=== PATIENT | male | born 1935 | race Caucasian/White ===

== ENCOUNTER 2024-07-17 18:55 | Inpatient (IN) | payer OTHER ==
[~2024-07-17] VITALS: Ht 177.8 cm; Wt 71.0 kg
[~2024-07-17 18:55] MED LIST: AMLO1TAB22 PO; ATOR40TA52 PO; FURO20TA4 PO; INSU1INJ3 SC; IPRAAER6 INH; LEVO175T4 PO; METO-289 PO; SENN8.6T83 PO; TORS20TA19 PO
--- NOTE | 2024-07-17 19:15 | ED.PDOC ---
History of Present Illness HPI Comments 88-year-old male brought in by EMS presents with a chief complaint of diarrhea x 2 months. Patient has been to multiple hospitals for this chronic issue and states that "no one can figure out what's going on". He states he has seen multiple doctors with no diagnosis. He denies associated abdominal pain. P vimal was hypoglycemic per EMS with a blood sugar reading of 72 and was given 24mg of Dextrose. Patient is on Torsemide for edema to his legs. No past medical history of congestive heart failure. Patient has chronic skin rash present for the past 15-20 years with no known diagnosis. Patient reports itching and watering of his eyes started today. Time Seen by MD: 18:58 Reviewed Notes: Medications, Allergies Allergies: Coded Allergies: NO KNOWN ALLERGIES (Unverified , 07/17/24) Information Source: Patient, Emergency Med Personnel Mode of Arrival: EMS Severity: Moderate Timing: Months Duration: Since onset Prehospital treatment: 12 Lead EKG, Concrete Gun Operator, Treatment (24mg Dextrose) Vital Signs Vital Signs Date Time Temp Pulse Resp B/P (MAP) Pulse Ox O2 Delivery O2 Flow Rate FiO2 07/17/24 19:05 98.6 76 16 105/57 (73) 95 98.6 Physical Exam General: Awake, alert and oriented. No acute distress. Skin: Skin in warm, dry, generalized flaking skin rash over head, chest, upper extremities HEENT: The head is normocephalic and atraumatic. Bilateral conjunctival erythema and edema with rounding eyelid edema. Clear watery discharge from bilateral eyes. Neck: The neck is supple with normal range of motion. No JVD. Cardiac: Heart rate and rhythm are normal. No murmurs, gallops, or rubs are auscultated. Respiratory: No signs of respiratory distress. Lung sounds are clear in all lobes bilaterally without rales, rhonchi, or wheezes. Abdominal: Abdomen is soft, non-tender without distention. Bowel sounds are present and normoactive in all four quadrants. Extremities: Upper and lower extremities are atraumatic in appearance without deformity or edema. Neurological: The patient is awake, alert and oriented to person, place, and t des with normal speech. Speech is clear. There is no facial asymmetry. Psychiatric: Appropriate mood and affect. Good judgement and insight. Review of Systems: REVIEW OF SYSTEMS: No fever, no chills, or fatigue HEENT: No sore throat, no earache, no congestion, no neck pain. Cardiac: No chest pain. No palpitations. Lungs: No shortness of breath, no cough. GI: No nausea, no vomiting, positive diarrhea, no constipation, no abdominal pain : No dysuria, frequency, or urgency. No hematuria. Musculoskeletal: No joint pain , no joint swelling, no extremity edema. Skin: Positive rash, no itching. Neuro: No headache, no dizziness, no weakness Past Medical History PAST MEDICAL HISTORY: CKF, DM, Thyroid Surgical History: Pt Confused Family History Family History: Pt Confused Social History Smoker: Non-Smoker Alcohol: Denies ETOH Use Drugs: Denies Drug Use Lives In: Home Was a procedure done? Was a procedure done?: No Differential Dx Considerations may include: Bacterial, C diff, electrolyte imbalance, vitamin deficiency, IBS, IBD, colitis, other X-Ray, Labs, Meds, VS Vital Signs Date Time Temp Pulse Resp B/P (MAP) Pulse Ox O2 Delivery O2 Flow Rate FiO2 07/17/24 19:05 98.6 76 16 105/57 (73) 95 98.6 Lab Test 07/17/24 21:32 07/17/24 21:05 07/17/24 21:00 07/17/24 19:33 Range/Units Lactic Acid Level 3.4 *H 4.5 *H 0.4-2.0 mmol/L Blood Gas Specimen Type Arterial Blood Gas Sample Site Right radial Blood Gas Patient Temperature 37.0 Arterial Blood Date Drawn [id number] Arterial Blood pH 7.420 7.350-7.450 Arterial Blood Partial Pressure CO2 49.7 H 35.0-48.0 mmHg Arterial Blood Partial Pressure O2 57.9 L 83.0-108.0 mmHg Arterial Blood HCO3 31.5 H 21.0-28.0 mmol/L Arterial Blood Oxygen Saturation 86.5 L 94.0-98.0 % Arterial Blood Base Excess 6.1 H -2.0-3.0 mmol/L Arterial Blood Oxyhemoglobin 85.8 L 94.0-98.0 % Arterial Blood Carboxyhemoglobin 0.6 0.5-1.5 % Arterial Blood Methemoglobin 0.2 0.0-1.5 % Cesario Test Modified Blood Gas Total Hemoglobin 10.90 L 13.5-17.5 g/dL Blood Gas Liter Flow 0.00 Blood Gas Modality Room air FiO2 % 21.0 Blood Gas Critical Value Read Back Yes Blood Gas Notified Whom Md julia rashid Blood Gas Notified By Rt jakob raymond Troponin I High Sensitivity 28 29 </=54 ng/L White Blood Count 6.7 4.4-10.8 10^3/uL Red Blood Count 4.44 L 4.5-5.90 10^6/uL Hemoglobin 12.1 L 13.5-17.5 g/dL Hematocrit 38.1 L 41.0-53.0 % Mean Corpuscular Volume 85.8 80.0-100.0 fL Mean Corpuscular Hemoglobin 27.3 L 28.0-32.0 pg Mean Corpuscular Hemoglobin Concent 31.8 L 32.0-36.0 g/dL Red Cell Distribution Width 17.4 H 11.8-14.3 % Platelet Count 181 140-450 10^3/uL Mean Platelet Volume 9.2 6.9-10.8 fL Neutrophils (%) (Auto) 92.9 H 37.0-80.0 % Lymphocytes (%) (Auto) 4.5 L 10.0-50.0 % Monocytes (%) (Auto) 2.2 0.0-12.0 % Eosinophils (%) (Auto) 0.2 0.0-7.0 % Basophils (%) (Auto) 0.2 0.0-2.0 % Neutrophils # (Auto) 6.2 1.6-8.6 10 ^3/uL Lymphocytes # (Auto) 0.3 L 0.4-5.4 10 ^3/uL Monocytes # (Auto) 0.1 0-1.3 10 ^3/uL Eosinophils # (Auto) 0 0-0.8 10 ^3/uL Basophils # (Auto) 0 0-0.2 10 ^3/uL Nucleated Red Blood Cells 0.2 % Sodium Level 146 H 136-145 mmol/L Potassium Level 2.0 *L 3.5-5.1 mmol/L Chloride Level 102 98-107 mmol/L Carbon Dioxide Level 32 H 20-31 mmol/L Anion Gap 12 5-15 Blood Urea Nitrogen 51 H 9-23 mg/dL Creatinine 3.24 H 0.700-1.30 mg/dL Glomerular Filtration Rate Calc 18 >90 mL/min BUN/Creatinine Ratio 15.7 10.0-20.0 Serum Glucose 63 L 74-106 mg/dL Calcium Level 7.0 L 8.7-10.4 mg/dL Magnesium Level 1.5 L 1.6-2.6 mg/dL Total Bilirubin 0.3 0.2-1.0 mg/dL Aspartate Amino Transferase (AST) 23 13-40 U/L Alanine Aminotransferase (ALT) 30 7-40 U/L Alkaline Phosphatase 111 46-116 U/L B-Type Natriuretic Peptide 449.41 0-100 pg/mL Total Protein 5.6 L 5.7-8.2 g/dL Albumin 2.9 L 3.2-4.8 g/dL PATIENT: Jill PandeyT: [id number]: [id number] : 1935 LOC: ER ROOM / BED: / AGE / SEX: 88 / M ADM STATUS: REG ER SERVICE 23 ORDERING PHYSICIAN: DELMER RASHID MD PROCEDURE(s): CXR1 - CHEST XRAY 1 VIEW REASON: Lower extremity edema, rule out pulmonary edema ORDER NUMBER(s): [id number], ACCESSION NUMBER(s): [id number] CHEST RADIOGRAPH Indication: Lower extremity edema, rule out pulmonary edema Technique: Single frontal view of the chest was obtained COMPARISON: None FINDINGS: Lines and Tubes: None Lungs: Multifocal airspace disease Pleura: No effusion. No pneumothorax. Cardiomediastinal contours: Cardiomegaly Bones: Unremarkable IMPRESSION: Pulmonary edema ATED BY: JOSUE COSTA MD DICTATED DATE/TIME: 07/17/241956 SIGNED BY: JOSUE COSTA MD SIGNED DATE/TIME: 07/17/241956 Time of 1ST Reevaluation: 19:28 Reevaluation 1ST: Unchanged Patient Education/Counseling: Need For Follow Up Family Education/Counseling: No Family Present Departure 1 Departure Time of Disposition: 20:31 Impression: Primary Impression: Chronic diarrhea Additional Impressions: Hypokalemia Hypomagnesemia Lactic acidemia Rash Conjunctivitis Acute renal failure Disposition: ADMITTED INPATIENT Condition: Stable Comments 88-year-old male with chronic diarrhea. Workup reveals likely hypovolemia as cause of elevated lactic acid. No leukocytosis or fever. Potassium and magn esium replacement initiated in the emergency department. Patient admitted to hospitalist service for further treatment, evaluation and monitoring. Extensive evaluation was performed in attempt to identify or rule out: (See differential diagnosis section) The following tests were ordered, and results were reviewed by me and discussed with patient: (See diagnostic results section) The following test were independently interpreted by me: N/A I reviewed and agreed with the following test results read by other providers: N/A I reviewed the following notes from the pt's past medical encounters: N/A Additional information was gathered from interviewing the following independent historians: EMS personnel Discussion of management or test interpretation with external physician/other qualified health health care technician: N/A Addressed an acute or chronic illness that poses a threat to life or bodily function: Hypokalemia, hypomagnesemia Decision regarding hospitalization or escalation of hospital level of care: Risk and benefits of admission for further treatment of patient's condition was considered. Due to patient's current clinical condition, high risk of decline and poor outcome if discharged and need for further inpatient management and monitoring, patient will be admitted to the hospital. Drug therapy requiring intensive monitoring for toxicity: N/A Parenteral controlled substances: N/A Decision regarding elective major surgery with identified patient or procedure risk factors: N/A Decision regarding emergency major surgery: N/A Decision not to resuscitate or to de-escalate care because of poor prognosis: N/A Diagnosis or treatment significantly limited by social determinants of health: N/A Critical Care Note Critical Care Time?: No Stability Stability form required: No Heart Score Heart Score: Heart Score Response (Comments) Value History N/A 0 EKG N/A 0 Age N/A 0 Risk Factors N/A 0 Troponin N/A 0 Total 0 I personally scribed for DELMER RASHID MD ([email or web address]) on 07/17/24 at 19:15. Electronically submitted by Jareth Mariee ([email or web address]). I personally scribed for DELMER RASHID MD ([email or web address]) on 07/17/24 at 20:04. Electronically submitted by Jareth Mariee ([email or web address]). DELMER RASHID MD Jul 17, 2024 19:15
[2024-07-17 19:55] LABS: Basophils # (auto) 0 10 ^3/uL (0-0.2); Basophils % (auto) 0.2 % (0.0-2.0); Eosinophils # (auto) 0 10 ^3/uL (0-0.8); Eosinophils % (auto) 0.2 % (0.0-7.0); Hematocrit 38.1 % (41.0-53.0); Hemoglobin 12.1 g/dL (13.5-17.5); Lymphocytes # (auto) 0.3 10 ^3/uL (0.4-5.4); Lymphocytes % (auto) 4.5 % (10.0-50.0); Mean Corpuscular Hemoglobin 27.3 pg (28.0-32.0); Mean Corpuscular Hgb Conc. 31.8 g/dL (32.0-36.0); Mean Corpuscular Volume 85.8 fL (80.0-100.0); Monocytes # (auto) 0.1 10 ^3/uL (0-1.3); Monocytes % (auto) 2.2 % (0.0-12.0); Neutrophils # (auto) 6.2 10 ^3/uL (1.6-8.6); Neutrophils % (auto) 92.9 % (37.0-80.0); Nucleated Red Blood Cells % 0.2 %; Platelet Count (auto) 181 10^3/uL (140-450); Red Blood Cells 4.44 10^6/uL (4.5-5.90); Red Cell Distribution Width 17.4 % (11.8-14.3); White Blood Cell 6.7 10^3/uL (4.4-10.8)
--- NOTE | 2024-07-17 19:59 | DVH ---
CHEST RADIOGRAPH Indication: Lower extremity edema, rule out pulmonary edema Technique: Single frontal view of the chest was obtained COMPARISON: None FINDINGS: Lines and Tubes: None Lungs: Multifocal airspace disease Pleura: No effusion. No pneumothorax. Cardiomediastinal contours: Cardiomegaly Bones: Unremarkable IMPRESSION: Pulmonary edema
[2024-07-17 20:04] LABS: Alanine Aminotransferase 30 U/L (7-40); Alkaline Phosphatase 111 U/L (46-116); Anion Gap 12 (5-15); Aspartate Aminotransferase 23 U/L (13-40); BUN/Creatinine Ratio 15.7 (10.0-20.0); Chloride 102 mmol/L (98-107)
[2024-07-17 20:08] LABS: Albumin 2.9 g/dL (3.2-4.8); Bilirubin, Total 0.3 mg/dL (0.2-1.0); Blood Urea Nitrogen 51 mg/dL (9-23); Carbon Dioxide 32 mmol/L (20-31); Glucose 63 mg/dL (74-106); Magnesium 1.5 mg/dL (1.6-2.6); Sodium 146 mmol/L (136-145); Total Protein 5.6 g/dL (5.7-8.2)
[2024-07-17 20:13] LABS: Lactic Acid w/Reflex 4.5 mmol/L (0.4-2.0)
[2024-07-17] MEDS ORDERED: SODIUM CHLORIDE 0.9% 1,000 ML IV ONE (20:30)
[2024-07-17 21:00] VITALS: PULSE 63; RESP 18; O2SAT 97
[2024-07-17] MEDS: SODIUM CHLORIDE 0.9% 1,000 ML IV ONE (21:00)
[2024-07-17 21:15] LABS: Base Excess 6.1 mmol/L (-2.0-3.0)
[2024-07-17] MEDS: POTASSIUM CHL 20 Meq TABLET PO ONE (23:08)
[2024-07-17] MEDS: BACITRACIN-POLYMYXIN B OPTH(EYE) OINT 3.5GM OP ONE (23:08)
[2024-07-17] MEDS: MAGNESIUM SULFATE 1GM/100ML 100 ML IV SCH (23:09)
[2024-07-17] MEDS: POTASSIUM CHL 20MEQ/50ML 50 ML IV ONE (23:09)
[2024-07-17] MEDS ORDERED: DEXTROSE (50%) 50ML SYRG IV PRN (23:45)
[2024-07-17] MEDS ORDERED: ONDANSETRON HCL 4 MG/2 ML VIAL IV PRN (23:45)
[2024-07-17] MEDS ORDERED: ACETAMINOPHEN 325 MG TAB PO PRN (23:45)
--- NOTE | 2024-07-18 00:02 | DVH ---
CLINICAL HISTORY: Diarrhea chronic, elevated lactic acid TECHNIQUE: CT of the abdomen and pelvis was performed without intravenous contrast. This exam was per formed according to our departmental dose optimization program. Up-to-date CT equipment and radiation dose reduction techniques are utilized as appropriate. CTDI: 7.23 DLP: 410.38 WID: COMPARISON: None FINDINGS: Lower Thorax: Moderate-sized left lower and right middle lobe consolidations. Interlobular septal thi ckening in the lung bases. Ground-glass opacification in the lung bases. There is mild cardiomegaly. Small right and trace left pleural effusions. Partially imaged moderate 3-vessel coronary artery calc ifications and mild aortic valve calcifications. Trace pericardial fluid. Hypodensity of the blood po ol relative to the myocardium indicative of anemia. Liver and Biliary system: Grossly Unremarkable apart from cholelithiasis. No biliary ductal dilatatio n. Spleen: Unremarkable. Adrenal Glands and Kidneys: Unremarkable. Pancreas and Retroperitoneum: Atrophic pancreas. A peripherally calcified structure is seen within or adjacent to the pancreas distally measuring 2.5 cm on series 2, image 30. No pathologically enlarged retroperitoneal lymph nodes. Aorta and Major Vessels: Aortoiliac vessels are normal in caliber with moderate calcified atheroscler otic plaque. Bowel, Mesentery and Peritoneal space: Normal caliber small and large bowel. Mild colonic diverticulo sis. No free air or fluid collection to suggest abscess. Mild mesenteric venous congestion. Pelvis: Unremarkable. Abdominal wall and Osseous Structures: Mild body wall edema. Bony demineralization. Multilevel lower thoracic and lumbar spondylosis. IMPRESSION: 1. Airspace consolidations which are moderate-sized in the left lower and right middle lobes likely m ultifocal pneumonia. 2. Mild cardiomegaly, interstitial and alveolar pulmonary edema, small right and trace left pleural e ffusions, mild mesenteric venous congestion and body wall edema likely related to mild CHF/ volume ov erload. 3. Anemia suggested. Correlate with CBC 4. Mild colonic diverticulosis. 5. Cholelithiasis.
--- NOTE | 2024-07-18 00:39 | DVHHP2 ---
History of Present Illness Reason for Visit: Shortness for breath History of Present Illness 88-year-old male presents for evaluation of shortness for breath. Patient's daughters at the bedside reports a one day history of her father complaining of worsening shortness for breath. They also report a two month history of watery diarrhea. They have noticed increased swelling to bilateral lower extremities. Denies chest pain or tightness. No cough or fever. Patient also has a chronic skin condition for the past 12 years. Past Medical History Hypothyroid, diabetes mellitus, chronic kidney disease, skin condition Past Surgical History None Family History Noncontributory Smoke: No ALCOHOL: none Drugs: None Lives: with Family Review of Systems Review of Systems Review of systems are currently negative otherwise addressed in HPI. Allergies: Coded Allergies: NO KNOWN ALLERGIES (Unverified , 07/17/24) Medications Current Medications Medications Dose Ordered Sig/Cassidy Route Start Time Stop Time Status Last Admin Dose Admin Ceftriaxone Sodium 50 ml @ 100 mls/hr DAILY@09 IV 07/19/24 09:00 Metronidazole 100 ml @ 100 mls/hr Q8HR IV 07/18/24 06:00 Magnesium Sulfate/ Dextrose 100 ml @ 100 mls/hr Q1H IV 07/17/24 23:45 07/18/24 01:44 Furosemide 20 mg DAILY IV 07/18/24 10:00 Diagnostic Test (Pha) 1 strip Q6HR 07/18/24 00:00 Insulin Human Regular Q6HR SC 07/18/24 00:00 Dextrose 50 ml UD PRN IV 07/17/24 23:45 Acetaminophen/ Hydrocodone Bitart 1 tab Q4HP PRN PO 07/17/24 23:45 Ondansetron HCl 4 mg Q4HP PRN IV 07/17/24 23:45 Acetaminophen 650 mg Q6HP PRN PO 07/17/24 23:45 Exam Vital Signs Vital Signs Date Time Temp Pulse Resp B/P (MAP) Pulse Ox O2 Delivery O2 Flow Rate FiO2 07/18/24 00:00 76 07/17/24 23:00 18 109/51 (70) 97 07/17/24 21:00 Room Air* 0 21 07/17/24 21:00 98.1 98.1 Exam Gen: 88-year-old male in mild distress Skin: Warm, dry, normal color and texture, scaly rash HEENT: Normocephalic atraumatic, mucous membranes moist and pink. Neck: Cervical and supraclavicular nodes normal without enlargement, trachea is midline, thyroid gland is normal without masses. Pulmonary: Clear to auscultation and percussion bilaterally. Cardiac: Regular rate and rhythm. No murmur Abdomen: Soft, nontender, nondistended, bowel sounds present all 4 quadrants, no guarding, no rigidity, no organomegaly. Extremities: No cyanosis, clubbing, bilateral lower extremity plus one edema Neuro: Cranial nerves II through XII grossly intact, normal affect and speech, no focal motor deficits. Labs/Xrays ORDERING PHYSICIAN: DELMER RASHID MD PROCEDURE(s): CXR1 - CHEST XRAY 1 VIEW REASON: Lower extremity edema, rule out pulmonary edema ORDER NUMBER(s): [id number], ACCESSION NUMBER(s): [id number] CHEST RADIOGRAPH Indication: Lower extremity edema, rule out pulmonary edema Technique: Single frontal view of the chest was obtained COMPARISON: None FINDINGS: Lines and Tubes: None Lungs: Multifocal airspace disease Pleura: No effusion. No pneumothorax. Cardiomediastinal contours: Cardiomegaly Bones: Unremarkable IMPRESSION: Pulmonary edema RING PHYSICIAN: DELMER RASHID MD PROCEDURE(s): ABPL - CT AB PEL WO CON-NO ORAL OR IV REASON: Diarrhea chronic, elevated lactic acid ORDER NUMBER(s): [id number], ACCESSION NUMBER(s): [id number] CLINICAL HISTORY: Diarrhea chronic, elevated lactic acid TECHNIQUE: CT of the abdomen and pelvis was performed without intravenous contrast. This exam was performed according to our departmental dose optimization program. Up-to-date CT equipment and radiation dose reduction techniques are utilized as appropriate. CTDI: 7.23 DLP: 410.38 WID: COMPARISON: None FINDINGS: Lower Thorax: Moderate-sized left lower and right middle lobe consolidations. Interlobular septal thickening in the lung bases. Ground-glass opacification in the lung bases. There is mild cardiomegaly. Small right and trace left pleural effusions. Partially imaged moderate 3-vessel coronary artery calcifications and mild aortic valve calcifications. Trace pericardial fluid. Hypodensity of the blood pool relative to the myocardium indicative of anemia. Liver and Biliary system: Grossly Unremarkable apart from cholelithiasis. No biliary ductal dilatation. Spleen: Unremarkable. Adrenal Glands and Kidneys: Unremarkable. Pancreas and Retroperitoneum: Atrophic pancreas. A peripherally calcified structure is seen within or adjacent to the pancreas distally measuring 2.5 cm on series 2, image 30. No pathologically enlarged retroperitoneal lymph nodes. Aorta and Major Vessels: Aortoiliac vessels are normal in caliber with moderate calcified atherosclerotic plaque. Bowel, Mesentery and Peritoneal space: Normal caliber small and large bowel. Mild colonic diverticulosis. No free air or fluid collection to suggest abscess. Mild mesenteric venous congestion. Pelvis: Unremarkable. Abdominal wall and Osseous Structures: Mild body wall edema. Bony demineralization. Multilevel lower thoracic and lumbar spondylosis. IMPRESSION: 1. Airspace consolidations which are moderate-sized in the left lower and right middle lobes likely multifocal pneumonia. 2. Mild cardiomegaly, interstitial and alveolar pulmonary edema, small right and trace left pleural effusions, mild mesenteric venous congestion and body wall edema likely related to mild CHF/ volume overload. 3. Anemia suggested. Correlate with CBC 4. Mild colonic diverticulosis. 5. Cholelithiasis. ATED BY: JOSE R MITCHELL MD Labs Test 07/17/24 21:32 07/17/24 21:05 07/17/24 21:00 07/17/24 19:33 Range/Units Lactic Acid Level 3.4 *H 0.4-2.0 mmol/L Blood Gas Specimen Type Arterial Blood Gas Sample Site Right radial Blood Gas Patient Temperature 37.0 Arterial Blood Date Drawn [id number] Arterial Blood pH 7.420 7.350-7.450 Arterial Blood Partial Pressure CO2 49.7 H 35.0-48.0 mmHg Arterial Blood Partial Pressure O2 57.9 L 83.0-108.0 mmHg Arterial Blood HCO3 31.5 H 21.0-28.0 mmol/L Arterial Blood Oxygen Saturation 86.5 L 94.0-98.0 % Arterial Blood Base Excess 6.1 H -2.0-3.0 mmol/L Arterial Blood Oxyhemoglobin 85.8 L 94.0-98.0 % Arterial Blood Carboxyhemoglobin 0.6 0.5-1.5 % Arterial Blood Methemoglobin 0.2 0.0-1.5 % Cesario Test Modified Blood Gas Total Hemoglobin 10.90 L 13.5-17.5 g/dL Blood Gas Liter Flow 0.00 Blood Gas Modality Room air FiO2 % 21.0 Blood Gas Critical Value Read Back Yes Blood Gas Notified Whom Md julia rashid Blood Gas Notified By Rt jakob raymond Troponin I High Sensitivity 28 </=54 ng/L White Blood Count 6.7 4.4-10.8 10^3/uL Red Blood Count 4.44 L 4.5-5.90 10^6/uL Hemoglobin 12.1 L 13.5-17.5 g/dL Hematocrit 38.1 L 41.0-53.0 % Mean Corpuscular Volume 85.8 80.0-100.0 fL Mean Corpuscular Hemoglobin 27.3 L 28.0-32.0 pg Mean Corpuscular Hemoglobin Concent 31.8 L 32.0-36.0 g/dL Red Cell Distribution Width 17.4 H 11.8-14.3 % Platelet Count 181 140-450 10^3/uL Mean Platelet Volume 9.2 6.9-10.8 fL Neutrophils (%) (Auto) 92.9 H 37.0-80.0 % Lymphocytes (%) (Auto) 4.5 L 10.0-50.0 % Monocytes (%) (Auto) 2.2 0.0-12.0 % Eosinophils (%) (Auto) 0.2 0.0-7.0 % Basophils (%) (Auto) 0.2 0.0-2.0 % Neutrophils # (Auto) 6.2 1.6-8.6 10 ^3/uL Lymphocytes # (Auto) 0.3 L 0.4-5.4 10 ^3/uL Monocytes # (Auto) 0.1 0-1.3 10 ^3/uL Eosinophils # (Auto) 0 0-0.8 10 ^3/uL Basophils # (Auto) 0 0-0.2 10 ^3/uL Nucleated Red Blood Cells 0.2 % Sodium Level 146 H 136-145 mmol/L Potassium Level 2.0 *L 3.5-5.1 mmol/L Chloride Level 102 98-107 mmol/L Carbon Dioxide Level 32 H 20-31 mmol/L Anion Gap 12 5-15 Blood Urea Nitrogen 51 H 9-23 mg/dL Creatinine 3.24 H 0.700-1.30 mg/dL Glomerular Filtration Rate Calc 18 >90 mL/min BUN/Creatinine Ratio 15.7 10.0-20.0 Serum Glucose 63 L 74-106 mg/dL Calcium Level 7.0 L 8.7-10.4 mg/dL Magnesium Level 1.5 L 1.6-2.6 mg/dL Total Bilirubin 0.3 0.2-1.0 mg/dL Aspartate Amino Transferase (AST) 23 13-40 U/L Alanine Aminotransferase (ALT) 30 7-40 U/L Alkaline Phosphatase 111 46-116 U/L B-Type Natriuretic Peptide 449.41 0-100 pg/mL Total Protein 5.6 L 5.7-8.2 g/dL Albumin 2.9 L 3.2-4.8 g/dL Assessment/Plan Assessment/Plan Assessment Multifocal pneumonia Acute on chronic CHF Colitis Acute renal failure Electrolyte imbalance Diabetes mellitus Plan Admit the [place] [facility] [place] Nephrology consult Dermatology consultation Echocardiogram pending Replete electrolytes Levaquin/Flagyl GI consultation Continue treatment per orders. Plan discussed with: Patient My Orders Orders - LEONIDES PUENTE Procedure Category Date Status Time Metronidazole PHA 07/18/24 In Process 500mg/100ml (Flagyl 06:00 Metronidazole PHA 07/17/24 In Process 500mg/100ml (Flagyl 23:45 Dermatology REFER 07/17/24 Transmitted 23:37 * [facility] [employer] CONS 07/17/24 Transmitted 23:37 *[facility]. [facility] CONS 07/17/24 Transmitted -[place] 23:37 Thyroid Stimulating LAB 07/17/24 In Process Hormone 23:37 Kidney US 07/17/24 Taken 23:37 Magnesium Sulfate PHA 07/17/24 In Process 1gm/100ml 23:45 Furosemide Injection PHA 07/18/24 In Process (Lasix Injection) 10:00 Basic Metabolic Panel LAB 07/18/24 Logged 04:00 Glucose Blood PHA 07/18/24 In Process (Accu-Chek Comfort 00:00 Insulin R (Human) PHA 07/18/24 In Process (Insulin R) 00:00 Dextrose 50% Syringe PHA 07/17/24 In Process 23:45 Admit ADMIT 07/17/24 Transmitted 23:37 Renal DIET 07/18/24 Transmitted Standard(2gna,3gk,Lopho) Breakfast Hydrocodone-Acet PHA 07/17/24 In Process 5/325mg Tab ([place] 23:45 Ondansetron Hcl PHA 07/17/24 In Process (Zofran) 23:45 Complete Blood Count LAB 07/18/24 Logged 04:00 Echo 2d Mode Cardiac US 07/17/24 Logged DOP 23:37 Condition: Stable CIRILO 07/17/24 In Process 23:37 Acetaminophen Tablet PHA 07/17/24 In Process (Tylenol Tablet) 23:45 Bedrest With Bathroom CIRILO 07/17/24 In Process Privileg 23:37 C-Reactive Protein LAB 07/17/24 In Process 23:52 Erythrocyte LAB 07/17/24 In Process Sedimentation Rate 23:52 Ceftriaxone 1gm/50ml PHA 07/19/24 In Process D5w (Rocephin) 09:00 Levofloxacin Levaquin PHA 07/18/24 Transmitted 00:45 Albuterol Medneb PHA 07/18/24 Verified (Ventolin Medneb) 00:45 Date of Service: Jul 17, 2024 Billing Provider: LEONIDES PUENTE Common Visit Codes: [id number] INP/OBS CARE (HIGH) LEONIDES PUENTE Jul 18, 2024 00:39
[2024-07-18 00:40] VITALS: BP 109/61; PULSE 76; RESP 18; TEMP 98.1; O2SAT 95
[2024-07-18] MEDS ORDERED: ALBUTEROL SULF 2.5 MG/0.5ML(0.5%) NEB SOLN NEB PRN (00:45)
[2024-07-18] MEDS: cefTRIAXone 1GM/50ML D5W 50 ML IV ONE ×2 (00:52→11:26)
[2024-07-18] MEDS: MAGNESIUM SULFATE 1GM/100ML 100 ML IV SCH ×2 (01:08→12:23)
[2024-07-18] MEDS: metroNIDAZOLE 500MG/100ML 100 ML IV ONE (01:08)
[2024-07-18] MEDS: InsuLIN REG 1unit/0.01ml Soln (100units/ml) SC SCH (01:16)
[2024-07-18] MEDS: ACCU-CHEK COMFORT CURVE STRIP VI SCH (01:16)
[2024-07-18 01:29] LABS: Erythrocyte Sedimentation Rate 50 mm/hr (0-20)
[2024-07-18] MEDS: FUROSEMIDE 20 MG/2 ML VIAL IV ONE (01:43)
[2024-07-18] MEDS: levoFLOXacin 750MG 150 ML IV ONE (01:44)
--- NOTE | 2024-07-18 02:04 | DVH ---
RENAL ULTRASOUND CLINICAL HISTORY: renal failure TECHNIQUE: Multiple grayscale ultrasound images were obtained through the kidneys and urinary bladder . COMPARISON: None FINDINGS: Right kidney: Measures 11 cm. No hydronephrosis. Left kidney: Measures 10.4 cm. No hydronephrosis. Urinary bladder: Distended urinary bladder without wall thickening. Prevoid volume is 615 mL. IMPRESSION: Normal size kidneys without evidence of hydronephrosis.
[2024-07-18 05:36] LABS: Basophils # (auto) 0 10 ^3/uL (0-0.2); Basophils % (auto) 0.1 % (0.0-2.0); Eosinophils # (auto) 0 10 ^3/uL (0-0.8); Eosinophils % (auto) 0.3 % (0.0-7.0); Hemoglobin 11.5 g/dL (13.5-17.5); Lymphocytes # (auto) 0.3 10 ^3/uL (0.4-5.4); Lymphocytes % (auto) 4.5 % (10.0-50.0); Mean Corpuscular Hemoglobin 26.6 pg (28.0-32.0); Mean Corpuscular Hgb Conc. 31.1 g/dL (32.0-36.0); Mean Corpuscular Volume 85.6 fL (80.0-100.0); Monocytes # (auto) 0.1 10 ^3/uL (0-1.3); Monocytes % (auto) 1.7 % (0.0-12.0); Neutrophils % (auto) 93.4 % (37.0-80.0); Nucleated Red Blood Cells % 2.6 %; Platelet Count (auto) 141 10^3/uL (140-450); Red Blood Cells 4.32 10^6/uL (4.5-5.90); Red Cell Distribution Width 17.1 % (11.8-14.3); White Blood Cell 6.4 10^3/uL (4.4-10.8)
[2024-07-18 05:59] LABS: Anion Gap 6 (5-15); Chloride 103 mmol/L (98-107); Sodium 141 mmol/L (136-145)
[2024-07-18 06:06] LABS: Carbon Dioxide 32 mmol/L (20-31); Glucose 146 mg/dL (74-106)
[2024-07-18 06:07] LABS: Potassium 2.2 mmol/L (3.5-5.1)
[2024-07-18 06:09] LABS: BUN/Creatinine Ratio 13.9 (10.0-20.0); Blood Urea Nitrogen 40 mg/dL (9-23)
[2024-07-18] MEDS: metroNIDAZOLE 500MG/100ML 100 ML IV SCH (06:31)
[2024-07-18 06:43] VITALS: O2SAT 93
[2024-07-18 08:00] VITALS: PULSE 76; RESP 12; O2SAT 94
[2024-07-18] MEDS: POTASSIUM CHL 20MEQ/50ML 50 ML IV SCH ×2 (08:08→20:45)
[2024-07-18] MEDS: SODIUM CHL 0.9% 100 ML IV SCH ×2 (08:09→20:45)
[2024-07-18] MEDS: FUROSEMIDE 20 MG/2 ML VIAL IV SCH (10:26)
--- NOTE | 2024-07-18 11:09 | DVHPN2 ---
Subjective 88-year-old male with a history of type 2 diabetes, chronic kidney disease, hypothyroidism came to the hospital with a chief complaint of shortness of breaths and diarrhea. He says he had the diarrhea for 2 month several bowel movements every day 2 or 3 or 4 He is also complaining of retaining fluid in his legs He denies abdominal pain, no vomiting Workup here showed a creatinine of 3.2 and a potassium of 2.0 and sodium of 146 and magnesium 1.5 Chest x-ray showed infiltrates in the lower [place] and a CT scan of the abdomen and pelvis confirmed bilateral pneumonia He is on 5 L nasal cannula He says he uses oxygen at home TSH was 20 Changes from previous H/P or p: Changes Objective Vitals Vital Signs Date Time Temp Pulse Resp B/P (MAP) Pulse Ox O2 Delivery O2 Flow Rate FiO2 07/18/24 10:26 106/64 07/18/24 08:00 97.7 76 12 94 97.7 07/18/24 08:00 Nasal Cannula* 4 36 Intake/Output Intake and Output 07/18/24 07:00 Intake Total 1020 ml Balance 1020 ml Intake IV Total 1020 ml General Appearance: Alert, Oriented X3, mild distress Lungs: Other (Bilateral rhonchi at the bases) Cardiovascular: Other (Irregularly irregular) Abdomen: Normal bowel sounds, Soft, No tenderness Extremities: Other (2+ edema bilaterally in the lower extremities) Medications Current Medications Medications Dose Ordered Sig/Cassidy Route Start Time Stop Time Status Last Admin Dose Admin Metronidazole 100 ml @ 100 mls/hr Q8HR IV 07/18/24 06:00 07/18/24 06:31 100 MLS/HR Furosemide 20 mg DAILY IV 07/18/24 10:00 07/18/24 10:26 20 MG Diagnostic Test (Pha) 1 strip Q6HR 07/18/24 00:00 07/18/24 06:31 1 STRIP Insulin Human Regular Q6HR SC 07/18/24 00:00 Dextrose 50 ml UD PRN IV 07/17/24 23:45 Acetaminophen/ Hydrocodone Bitart 1 tab Q4HP PRN PO 07/17/24 23:45 Ondansetron HCl 4 mg Q4HP PRN IV 07/17/24 23:45 Acetaminophen 650 mg Q6HP PRN PO 07/17/24 23:45 Levofloxacin/ Dextrose 100 ml @ 100 mls/hr Q48H IV 07/19/24 01:00 Albuterol 2.5 mg Q6HPRN PRN NEB 07/18/24 00:45 Laboratory Results Laboratory Tests 07/18/24 05:23 Chemistry Test 07/17/24 19:33 07/18/24 05:23 Albumin 2.9 g/dL (3.2-4.8) L Calcium Level 7.0 mg/dL (8.7-10.4) L 7.0 mg/dL (8.7-10.4) L Magnesium Level 1.5 mg/dL (1.6-2.6) L 1.8 mg/dL (1.6-2.6) Total Protein 5.6 g/dL (5.7-8.2) L Cardiac Markers Test 07/17/24 19:33 B-Type Natriuretic Peptide 449.41 pg/mL (0-100) LFT Test 07/17/24 19:33 Alanine Aminotransferase (ALT) 30 U/L (7-40) Alkaline Phosphatase 111 U/L (46-116) Aspartate Amino Transferase (AST) 23 U/L (13-40) Total Bilirubin 0.3 mg/dL (0.2-1.0) HgA1c, TSH Test 07/17/24 21:00 Thyroid Stimulating Hormone (TSH) 20.73 uIU/mL (0.55-4.78) H Blood Gas Results Test 07/17/24 21:05 Arterial Blood pH 7.420 (7.350-7.450) FiO2 % 21.0 Assessment/Plan Assessment/Plan Acute hypoxic respiratory failure Bilateral multifocal pneumonia Type 2 diabetes Chronic kidney disease Mixed hyperlipidemia Hypothyroidism, uncontrolled Cholelithiasis Diverticulosis Pulmonary edema, rule out heart failure Acute kidney injury, hemodynamically mediated Diarrhea x2 months Hypokalemia Hypernatremia Hypomagnesemia Sepsis Atrial fibrillation Plan Clear liquid diet Broad-spectrum empiric IV antibiotics with ceftriaxone and metronidazole Replace potassium IV Echocardiogram to rule out heart failure Collect stools for C diff and bacterial culture Get urinalysis Replace magnesium Blood culture Urine culture Galvez catheter Nephrology consult Lasix 20 mg IV daily Atrial fibrillation?, check EKG Resume levothyroxine 100 mcg daily IV Protonix Monitor on telemetry Plan discussed with: Patient Date of Service: Jul 18, 2024 Billing Provider: KARRIE TORRES MD Common Visit Codes: NOT BILLABLE KARRIE TORRES MD Jul 18, 2024 11:08
[2024-07-18] MEDS: PANTOPRAZOLE 40 MG/10 ML VIAL INJ IV ONE (11:27)
[2024-07-18] MEDS: LEVOTHYROXINE SODIUM 100 MCG TAB PO ONE (12:21)
[2024-07-18] MEDS ORDERED: POTASSIUM CHL 20 Meq TABLET PO ONE (16:00)
--- NOTE | 2024-07-18 16:17 | DVHINCON2 ---
Date of service: Jul 18, 2024 Referring Physician Hospital Reason for Consultation Hypokalemia History of Present Illness 88-year-old male past medical history of hypertension, hypothyroidism, diabetes, chronic kidney disease stage IV patient sees Dr. Gan in clinic. Patient's recent office visit was notable for hypokalemia was given oral potassium. Per family at bedside patient has been having diarrhea multiple rounds for the past two months reports he is not able been able to take down any food due to the diarrhea. He has developed severe weakness fatigue family brought him in for evaluation due to concern for failure to thrive. Patient has an undiagnosed skin disorder believed to be psoriatic arthritis and was on an immunologic less than six months ago. Allergies: Coded Allergies: NO KNOWN ALLERGIES (Unverified , 07/17/24) Home Meds Reported Medications Metoprolol Succinate (Metoprolol Succinate Er) 50 Mg Tab, 1 TAB PO DAILY for 90 Days, #90 07/18/24 Atorvastatin Calcium (ATORVASTATIN CALCIUM) 40 Mg Tab, 1 TAB PO DAILY for 90 Days, #90 07/18/24 Senna (Senna-Time) 8.6 Mg Tab, 2-4 TAB PO QHSP PRN for FOR CONSTIPATION for 15 Days, #60 07/18/24 Ipratropium-Albuterol (COMBIVENT RESPIMAT) Respimat Aer, 1 PUFF INH QID for 30 Days, #4 07/18/24 Amlodipine Besylate (Amlodipine Besylate) 5 Mg Tab, 1 TAB PO DAILY for 30 Days, #30 07/18/24 Insulin NPH Isophane & Reg (Hu (Humulin 70/30 Kwikpen (70-30) 100 Unit/ml) 1 Inj Inj, 20 UNITS SC BEFORE DINNER for 90 Days, #45 07/18/24 Insulin NPH Isophane & Reg (Hu (Humulin 70/30 Kwikpen (70-30) 100 Unit/ml) 1 Inj Inj, 30 UNITS SC BEFORE BREAKFAST for 90 Days, #45 07/18/24 Torsemide Injection (Torsemide) 20 Mg Tab, 1 TAB PO DAILY for 90 Days, #90 07/18/24 Levothyroxine Sodium (Levothyroxine Sodium) 175 Mcg Tab, 1 TAB PO QAM for 100 Days, #100 07/18/24 Current Medications Current Medications Medications (Trade) Dose Ordered Sig/Cassidy Route PRN Reason Start Time Stop Time Status Last Admin Magnesium Sulfate/ Dextrose 100 ml @ 100 mls/hr Q1H IV 07/17/24 20:30 07/17/24 22:29 DC 07/17/24 23:36 Ceftriaxone Sodium 50 ml @ 100 mls/hr DAILY@09 IV 07/19/24 09:00 07/18/24 00:34 DC Metronidazole 100 ml @ 100 mls/hr Q8HR IV 07/18/24 06:00 07/18/24 14:37 Magnesium Sulfate/ Dextrose 100 ml @ 100 mls/hr Q1H IV 07/17/24 23:45 07/18/24 01:44 DC 07/18/24 01:08 Furosemide (Lasix Injection) 20 mg DAILY IV 07/18/24 10:00 07/18/24 10:26 Diagnostic Test (Pha) (Accu-Chek Comfort Curve T) 1 strip Q6HR 07/18/24 00:00 07/18/24 11:17 DC 07/18/24 06:31 Insulin Human Regular (InsuLIN R) Q6HR SC 07/18/24 00:00 07/18/24 11:17 DC Dextrose 50 ml UD PRN IV Blood Sugar LESS THAN 60 07/17/24 23:45 Acetaminophen/ Hydrocodone Bitart ([place] 5/325MG Tab) 1 tab Q4HP PRN PO MODERATE PAIN (4-6 PAIN SCALE) 07/17/24 23:45 Ondansetron HCl (Zofran) 4 mg Q4HP PRN IV NAUSEA / VOMITING 07/17/24 23:45 Acetaminophen (Tylenol Tablet) 650 mg Q6HP PRN PO PAIN SCALE 1-3 OR TEMP>100.4 07/17/24 23:45 Levofloxacin/ Dextrose 100 ml @ 100 mls/hr Q48H IV 07/19/24 01:00 07/18/24 11:03 DC Albuterol (Ventolin Medneb) 2.5 mg Q6HPRN PRN NEB SHORTNESS OF BREATH 07/18/24 00:45 Potassium Chloride 50 ml @ 25 mls/hr Q2H IV 07/18/24 06:45 07/18/24 10:44 DC 07/18/24 10:05 Sodium Chloride 100 ml @ 50 mls/hr Q2H IV 07/18/24 06:45 07/18/24 10:44 DC 07/18/24 10:05 Pantoprazole Sodium (Protonix) 40 mg DAILY IV 07/19/24 10:00 Ceftriaxone Sodium 50 ml @ 100 mls/hr DAILY@09 IV 07/19/24 09:00 Levothyroxine Sodium (Synthroid Tablet) 100 mcg QAM@0600 PO 07/19/24 06:00 Magnesium Sulfate/ Dextrose 100 ml @ 100 mls/hr Q1HR IV 07/18/24 12:00 07/18/24 13:59 DC 07/18/24 13:14 Review of Systems Diarrhea H&P Exam Vital Signs/I&O Vital Sign Date Time Temp Pulse Resp B/P (MAP) Pulse Ox O2 Delivery O2 Flow Rate FiO2 07/18/24 12:09 97.7 69 13 95/42 (59) 94 97.7 07/18/24 08:00 Nasal Cannula* 4 36 Intake and Output 07/17/24 07/18/24 19:00 07:00 Intake Total 1020 ml Balance 1020 ml Intake IV Total 1020 ml Physical Exam Frail malnourished appearing elderly male With severe diffuse dry skin and excoriations Sunken eyes with blisters and brownish drainage round conjunctiva No JVD Abdomen is soft Labs/Diagnostic Data Labs/Diagnostic Data Laboratory Tests Test 07/18/24 15:09 07/18/24 11:45 07/18/24 05:23 07/17/24 21:32 Range/Units Potassium Level 2.2 *L 2.2 *L 3.5-5.1 mmol/L Stool Occult Blood Negative Negative Stool Occult Blood Sample #3 Negative White Blood Count 6.4 4.4-10.8 10^3/uL Red Blood Count 4.32 L 4.5-5.90 10^6/uL Hemoglobin 11.5 L 13.5-17.5 g/dL Hematocrit 37.0 L 41.0-53.0 % Mean Corpuscular Volume 85.6 80.0-100.0 fL Mean Corpuscular Hemoglobin 26.6 L 28.0-32.0 pg Mean Corpuscular Hemoglobin Concent 31.1 L 32.0-36.0 g/dL Red Cell Distribution Width 17.1 H 11.8-14.3 % Platelet Count 141 140-450 10^3/uL Mean Platelet Volume 9.2 6.9-10.8 fL Neutrophils (%) (Auto) 93.4 H 37.0-80.0 % Lymphocytes (%) (Auto) 4.5 L 10.0-50.0 % Monocytes (%) (Auto) 1.7 0.0-12.0 % Eosinophils (%) (Auto) 0.3 0.0-7.0 % Basophils (%) (Auto) 0.1 0.0-2.0 % Neutrophils # (Auto) 6.0 1.6-8.6 10 ^3/uL Lymphocytes # (Auto) 0.3 L 0.4-5.4 10 ^3/uL Monocytes # (Auto) 0.1 0-1.3 10 ^3/uL Eosinophils # (Auto) 0 0-0.8 10 ^3/uL Basophils # (Auto) 0 0-0.2 10 ^3/uL Nucleated Red Blood Cells 2.6 % Sodium Level 141 # 136-145 mmol/L Chloride Level 103 98-107 mmol/L Carbon Dioxide Level 32 H 20-31 mmol/L Anion Gap 6 5-15 Blood Urea Nitrogen 40 #H 9-23 mg/dL Creatinine 2.87 H 0.700-1.30 mg/dL Glomerular Filtration Rate Calc 21 >90 mL/min BUN/Creatinine Ratio 13.9 10.0-20.0 Serum Glucose 146 H 74-106 mg/dL Calcium Level 7.0 L 8.7-10.4 mg/dL Magnesium Level 1.8 1.6-2.6 mg/dL Lactic Acid Level 3.4 *H 0.4-2.0 mmol/L Test 07/17/24 21:05 07/17/24 21:00 07/17/24 19:33 Range/Units Blood Gas Specimen Type Arterial Blood Gas Sample Site Right radial Blood Gas Patient Temperature 37.0 Arterial Blood Date Drawn [id number] Arterial Blood pH 7.420 7.350-7.450 Arterial Blood Partial Pressure CO2 49.7 H 35.0-48.0 mmHg Arterial Blood Partial Pressure O2 57.9 L 83.0-108.0 mmHg Arterial Blood HCO3 31.5 H 21.0-28.0 mmol/L Arterial Blood Oxygen Saturation 86.5 L 94.0-98.0 % Arterial Blood Base Excess 6.1 H -2.0-3.0 mmol/L Arterial Blood Oxyhemoglobin 85.8 L 94.0-98.0 % Arterial Blood Carboxyhemoglobin 0.6 0.5-1.5 % Arterial Blood Methemoglobin 0.2 0.0-1.5 % Cesario Test Modified Blood Gas Total Hemoglobin 10.90 L 13.5-17.5 g/dL Blood Gas Liter Flow 0.00 Blood Gas Modality Room air FiO2 % 21.0 Blood Gas Critical Value Read Back Yes Blood Gas Notified Whom Md julia toussaint Blood Gas Notified By Rt jakob raymond Troponin I High Sensitivity 28 29 </=54 ng/L C-Reactive Protein High Sensitivity > 20.00 H <1.0 mg/dL Thyroid Stimulating Hormone (TSH) 20.73 H 0.55-4.78 uIU/mL White Blood Count 6.7 4.4-10.8 10^3/uL Red Blood Count 4.44 L 4.5-5.90 10^6/uL Hemoglobin 12.1 L 13.5-17.5 g/dL Hematocrit 38.1 L 41.0-53.0 % Mean Corpuscular Volume 85.8 80.0-100.0 fL Mean Corpuscular Hemoglobin 27.3 L 28.0-32.0 pg Mean Corpuscular Hemoglobin Concent 31.8 L 32.0-36.0 g/dL Red Cell Distribution Width 17.4 H 11.8-14.3 % Platelet Count 181 140-450 10^3/uL Mean Platelet Volume 9.2 6.9-10.8 fL Neutrophils (%) (Auto) 92.9 H 37.0-80.0 % Lymphocytes (%) (Auto) 4.5 L 10.0-50.0 % Monocytes (%) (Auto) 2.2 0.0-12.0 % Eosinophils (%) (Auto) 0.2 0.0-7.0 % Basophils (%) (Auto) 0.2 0.0-2.0 % Neutrophils # (Auto) 6.2 1.6-8.6 10 ^3/uL Lymphocytes # (Auto) 0.3 L 0.4-5.4 10 ^3/uL Monocytes # (Auto) 0.1 0-1.3 10 ^3/uL Eosinophils # (Auto) 0 0-0.8 10 ^3/uL Basophils # (Auto) 0 0-0.2 10 ^3/uL Nucleated Red Blood Cells 0.2 % Erythrocyte Sedimentation Rate 50 H 0-20 mm/hr Sodium Level 146 H 136-145 mmol/L Potassium Level 2.0 *L 3.5-5.1 mmol/L Chloride Level 102 98-107 mmol/L Carbon Dioxide Level 32 H 20-31 mmol/L Anion Gap 12 5-15 Blood Urea Nitrogen 51 H 9-23 mg/dL Creatinine 3.24 H 0.700-1.30 mg/dL Glomerular Filtration Rate Calc 18 >90 mL/min BUN/Creatinine Ratio 15.7 10.0-20.0 Serum Glucose 63 L 74-106 mg/dL Lactic Acid Level 4.5 *H 0.4-2.0 mmol/L Calcium Level 7.0 L 8.7-10.4 mg/dL Magnesium Level 1.5 L 1.6-2.6 mg/dL Total Bilirubin 0.3 0.2-1.0 mg/dL Aspartate Amino Transferase (AST) 23 13-40 U/L Alanine Aminotransferase (ALT) 30 7-40 U/L Alkaline Phosphatase 111 46-116 U/L B-Type Natriuretic Peptide 449.41 0-100 pg/mL Total Protein 5.6 L 5.7-8.2 g/dL Albumin 2.9 L 3.2-4.8 g/dL Assessment Severe hypokalemia likely in the setting of volume depletion Recurrent severe profuse diarrhea likely medication induced Severe dry skin etiology unknown autoimmune disorder? Protein calorie malnutrition Ultrasound of the kidney and CT of the abdomen shows no acute renal pathology Patient has mild cardiomegaly however clinically patient appears to be volume depleted in the setting of severe diarrhea I recommend gentle IV fluid continuous Potassium replacement IV Obtain urinalysis and obtain urine protein creatinine ratio Sepsis workup and obtain C diff Recommend autoimmune workup patient notes ESR and CRP at this time are elevated Patient was poor overall prognosis and family wants diagnosis and prognosis to determine patient's life goals Plan discussed with: Patient, Spouse JAY CARTWRIGHT MD Jul 18, 2024 16:17
[2024-07-18] MEDS: POTASSIUM CHL 20 Meq TABLET PO ONE (16:47)
[2024-07-18] MEDS: SODIUM CHLORIDE 0.9% 1,000 ML IV SCH (16:54)
[2024-07-18 18:31] LABS: Chloride 102 mmol/L (98-107); Sodium 141 mmol/L (136-145)
[2024-07-18 18:32] LABS: Anion Gap 8 (5-15); Carbon Dioxide 31 mmol/L (20-31)
[2024-07-18 18:37] LABS: BUN/Creatinine Ratio 13.7 (10.0-20.0)
[2024-07-18 18:51] LABS: Blood Urea Nitrogen 37 mg/dL (9-23); Calcium 7.1 mg/dL (8.7-10.4); Glucose 337 mg/dL (74-106)
[2024-07-18 18:53] LABS: Potassium 2.2 mmol/L (3.5-5.1)
[2024-07-18 19:30] VITALS: O2SAT 92
[2024-07-18 19:53] VITALS: PULSE 67; RESP 16; O2SAT 90
[2024-07-18 21:46] LABS: Protein, Urine 36.5 mg/dL (1-14)
[2024-07-18 21:48] LABS: Creatinine, Urine 22.39 mg/dL (30.0-125.0); Urine Protein/Creatinine Ratio 1.63
[2024-07-18 21:51] LABS: Urine Amorphous Crystal FEW /hpf (None Seen); Urine Bacteria FEW /hpf (None Seen); Urine Blood 1+ /uL (Negative); Urine Clarity Clear (Clear); Urine Color Light-Yellow (Yellow); Urine Protein, UAD Negative (Negative); Urine Specific Gravity 1.008 (1.001-1.035); Urine Squamous Epithelial Cell FEW /hpf (<5); Urine Urobilinogen Normal (Negative); Urine WBC < 1 /HPF (0-3)
[2024-07-18 22:30] VITALS: BP 100/40; PULSE 68; RESP 18; TEMP 87.5; O2SAT 90; O2SAT 98
[2024-07-19] VITALS (71 sets, daily range): BP systolic 66–149; BP diastolic 33–98; PULSE 58–92; RESP 8–20; TEMP 87.1–97.2; O2SAT 87–98
[2024-07-19] MEDS ORDERED: levoFLOXacin 500MG 100 ML IV SCH (01:00)
[2024-07-19] MEDS: PHENYLEPHRINE IV 250 ML IV ONE (05:07)
[2024-07-19] MEDS: PHENYLEPHRINE IV 250 ML IV SCH (05:41)
[2024-07-19] MEDS: LEVOTHYROXINE SODIUM 100 MCG TAB PO SCH (05:53)
[2024-07-19 05:59] LABS: Hematocrit 34.2 % (41.0-53.0); Hemoglobin 10.9 g/dL (13.5-17.5); Mean Corpuscular Hemoglobin 27.3 pg (28.0-32.0); Mean Corpuscular Volume 85.3 fL (80.0-100.0); Platelet Count (auto) 116 10^3/uL (140-450); Red Blood Cells 4.01 10^6/uL (4.5-5.90); Red Cell Distribution Width 16.8 % (11.8-14.3); White Blood Cell 4.9 10^3/uL (4.4-10.8)
[2024-07-19 06:13] LABS: INR 1.63 (0.9-1.15); Partial Thromboplastin Time 43.9 SEC (24.5-34.5); Prothrombin Time 16.5 sec (9.3-11.8)
[2024-07-19 06:19] LABS: Alanine Aminotransferase 24 U/L (7-40); Alkaline Phosphatase 93 U/L (46-116); Anion Gap 7 (5-15); Aspartate Aminotransferase 16 U/L (13-40); BUN/Creatinine Ratio 13.6 (10.0-20.0); Cholesterol < 50.0 mg/dL (< 200); LDL Cholesterol 6 mg/dL (< 100); Magnesium 2.1 mg/dL (1.6-2.6); Triglycerides 45 mg/dL (< 150)
[2024-07-19 06:25] LABS: Albumin 2.4 g/dL (3.2-4.8); Bilirubin, Total 0.3 mg/dL (0.2-1.0); Blood Urea Nitrogen 38 mg/dL (9-23); Calcium 6.9 mg/dL (8.7-10.4); Carbon Dioxide 32 mmol/L (20-31); Chloride 108 mmol/L (98-107); Glucose 332 mg/dL (74-106); HDL Cholesterol 13 mg/dL (40-59); Sodium 147 mmol/L (136-145); Total Protein 4.9 g/dL (5.7-8.2)
[2024-07-19 06:26] LABS: Lactic Acid w/Reflex 3.3 mmol/L (0.4-2.0); Potassium 2.1 mmol/L (3.5-5.1)
[2024-07-19 06:40] LABS: Lipase 13 U/L (12-53)
[2024-07-19 07:01] LABS: Band Neutrophils % (manual) 0; Basophils % (manual) 0 (0.0-2.0); Blast Cells 0; Eosinophils % (manual) 0 (0-7); Metamyelocytes % 0; Myelocytes % 0; Promyelocytes % 0; Reactive Lymphocytes 0
[2024-07-19] MEDS ORDERED: SOD CHL 0.9%/ KCL 20MEQ 1,000 ML IV SCH (08:00)
[2024-07-19] MEDS: POTASSIUM CHL 20 Meq TABLET PO ONE (08:00)
[2024-07-19] MEDS: cefTRIAXone 1GM/50ML D5W 50 ML IV SCH (08:55)
[2024-07-19] MEDS: INSULIN LANTUS (GLARGINE) 1 /0.01ml (100units/ml) SC ONE (08:55)
--- NOTE | 2024-07-19 08:59 | ECG ---
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
[2024-07-19] MEDS ORDERED: cefTRIAXone 1GM/50ML D5W 50 ML IV SCH (09:00)
[2024-07-19] MEDS: POTASSIUM EFFERVESENT TAB 25 MEQ PO ONE ×2 (09:06→16:00)
[2024-07-19] MEDS: D5W/SOD CHL 0.45%/KCL 20MEQ 1,000 ML IV SCH (09:13)
[2024-07-19] MEDS: PANTOPRAZOLE 40 MG/10 ML VIAL INJ IV SCH (09:14)
--- NOTE | 2024-07-19 09:25 | DVHPN2 ---
Subjective His blood pressure went down last night so he had to be started on vasopressors Potassium is still low He is still having diarrhea Potassium today is 2.1 with a creatinine of 2.8 Magnesium is 2.1 CBC is stable with a platelets of 116 which is trending down Changes from previous H/P or p: Changes Objective Vitals Vital Signs Date Time Temp Pulse Resp B/P (MAP) Pulse Ox O2 Delivery O2 Flow Rate FiO2 07/19/24 08:45 71 16 102/43 (62) 93 07/19/24 08:00 Nasal Cannula* 5 40 07/19/24 05:30 97.2 97.2 Intake/Output Intake and Output 07/19/24 07:00 Intake Total 650 ml Output Total 865 ml Balance -215 ml Intake Oral 0 ml IV Total 650 ml Output Urine Total 865 ml # Bowel Movements 2 General Appearance: Alert, Oriented X3, mild distress Lungs: Other (Bilateral rhonchi at the bases) Cardiovascular: Other (Irregularly irregular) Abdomen: Normal bowel sounds, Soft, No tenderness Extremities: Other (2+ edema bilaterally in the lower extremities) Medications Current Medications Medications Dose Ordered Sig/Cassidy Route Start Time Stop Time Status Last Admin Dose Admin Metronidazole 100 ml @ 100 mls/hr Q8HR IV 07/18/24 06:00 07/19/24 05:53 100 MLS/HR Dextrose 50 ml UD PRN IV 07/17/24 23:45 Acetaminophen/ Hydrocodone Bitart 1 tab Q4HP PRN PO 07/17/24 23:45 Ondansetron HCl 4 mg Q4HP PRN IV 07/17/24 23:45 Acetaminophen 650 mg Q6HP PRN PO 07/17/24 23:45 Albuterol 2.5 mg Q6HPRN PRN NEB 07/18/24 00:45 Pantoprazole Sodium 40 mg DAILY IV 07/19/24 10:00 07/19/24 09:14 40 MG Ceftriaxone Sodium 50 ml @ 100 mls/hr DAILY@09 IV 07/19/24 09:00 07/19/24 08:55 100 MLS/HR Levothyroxine Sodium 100 mcg QAM@0600 PO 07/19/24 06:00 Phenylephrine HCl 250 ml @ 30 mls/hr Q8H20M IV 07/19/24 05:30 07/19/24 05:41 30 MLS/HR Potassium Chloride/Dextrose/ Sod Cl 1,000 ml @ 75 mls/hr [id number] IV 07/19/24 08:15 07/19/24 09:13 75 MLS/HR Insulin Glargine 10 units BID@0700,2200 SC 07/19/24 22:00 Diagnostic Test (Pha) 1 strip ACHS 07/19/24 11:30 Insulin Human Regular ACHS SC 07/19/24 11:30 Dextrose 50 ml UD PRN IV 07/19/24 08:45 Laboratory Results Laboratory Tests 07/19/24 05:15 Chemistry Test 07/18/24 17:57 07/19/24 05:15 Calcium Level 7.1 mg/dL (8.7-10.4) L 6.9 mg/dL (8.7-10.4) L Albumin 2.4 g/dL (3.2-4.8) L Magnesium Level 2.1 mg/dL (1.6-2.6) Total Protein 4.9 g/dL (5.7-8.2) L Coagulation Test 07/18/24 17:57 07/19/24 05:15 Prothrombin Time Diluted Pending Dilute PT Confirmation Ratio Pending Thrombin Time Pending Dilute Harry Viper Venom (Lupus) Pending Lupus Anticoagulant Interpretation Pending Prothrombin Time 16.5 sec (9.3-11.8) H Prothrombin Time INR 1.63 (0.9-1.15) H Activated Partial Thromboplast Time 43.9 SEC (24.5-34.5) H Lipid panel Test 07/19/24 05:15 Cholesterol Level < 50.0 mg/dL (< 200) HDL Cholesterol 13 mg/dL (40-59) L Lipase 13 U/L (12-53) Triglycerides Level 45 mg/dL (< 150) LFT Test 07/19/24 05:15 Alanine Aminotransferase (ALT) 24 U/L (7-40) Alkaline Phosphatase 93 U/L (46-116) Aspartate Amino Transferase (AST) 16 U/L (13-40) Total Bilirubin 0.3 mg/dL (0.2-1.0) HgA1c, TSH Test 07/19/24 05:15 Hemoglobin A1c 7.6 % A1C (<5.7) H Urinalysis Test 07/18/24 21:12 Urine Color Light-yellow (Yellow) Urine Clarity Clear (Clear) Urine pH 5.0 (5.0-9.0) Urine Specific [place] 1.008 (1.001-1.035) Urine Protein Negative (Negative) Urine Ketones Negative (Negative) Urine Blood 1+ /uL (Negative) H Urine Nitrite Negative (Negative) Urine Bilirubin Negative (Negative) Urine Urobilinogen Normal mg/dL (Negative) Urine Leukocyte Esterase Negative /uL (Negative) Urine RBC <1 /hpf (0 - 3) Urine Microscopic WBC < 1 /HPF (0-3) Urine Squamous Epithelial Cells Few /hpf (<5) Urine Amorphous Crystals Few /hpf (None Seen) Urine Bacteria Few /hpf (None Seen) H Urine Creatinine 22.39 mg/dL (30.0-125.0) L Urine Protein/Creatinine Ratio 1.63 Urine Glucose 2+ mg/dL (Normal) H Urine Total Protein 36.5 mg/dL (1-14) H Microbiology Microbiology Date/Time Source Procedure Growth Status 07/18/24 11:45 Stool Stool Culture - Preliminary Resulted 07/18/24 11:45 Stool Shiga Toxin I & II - Final Resulted 07/18/24 11:45 Stool Clostridium difficile Toxin Assay Pending Resulted Assessment/Plan Assessment/Plan Acute hypoxic respiratory failure Bilateral multifocal pneumonia Type 2 diabetes Chronic kidney disease Mixed hyperlipidemia Hypothyroidism, uncontrolled Cholelithiasis Diverticulosis Pulmonary edema, rule out heart failure Acute kidney injury, hemodynamically mediated Diarrhea x2 months Hypokalemia Hypernatremia Hypomagnesemia Sepsis Atrial fibrillation Plan Clear liquid diet Broad-spectrum empiric IV antibiotics with ceftriaxone and metronidazole Replace potassium IV Echocardiogram to rule out heart failure Collect stools for C diff and bacterial culture Get urinalysis Replace magnesium Blood culture Urine culture Galvez catheter Nephrology consult Lasix 20 mg IV daily Atrial fibrillation?, check EKG Resume levothyroxine 100 mcg daily IV Protonix Monitor on telemetry 07/19/2024: Continue vasopressors with Levophed as needed Replace potassium IV and p.o. IV fluids Discontinue Lasix Oxygen as needed IV antibiotics Rocephin and Flagyl C diff in his stool is still pending Diarrhea Pulmonary edema: Rule out heart failure Echocardiogram is pending Cardiology consult Pulmonary consult Atrial flutter with controlled rate Sepsis with septic shock: Continue Levophed drip, IV antibiotics Plan discussed with: Patient My Orders Orders - KARRIE TORRES MD Procedure Category Date Status Time Public Health Inspector ORDERS 07/18/24 Transmitted 10:58 Clear Liq Diet DIET 07/18/24 Transmitted Lunch Pantoprazole PHA 07/19/24 In Process (Protonix) 10:00 Complete Blood Count LAB 07/19/24 In Process 04:00 Blood Culture SALEEM 07/18/24 In Process 11:04 Urine Bacterial SALEEM 07/18/24 In Process Culture 11:05 Ceftriaxone 1gm/50ml PHA 07/19/24 In Process D5w (Rocephin) 09:00 Transfer Orders XFER 07/18/24 Transmitted 11:10 Levothyroxine Tablet PHA 07/19/24 In Process (Synthroid Tablet) 06:00 Manual Differential LAB 07/19/24 In Process 05:15 D5w/Sod Chl 0.45%/Kcl PHA 07/19/24 In Process 20meq 08:15 Insulin Lantus PHA 07/19/24 In Process (Glargine) (Lantus) 22:00 Glucose Blood PHA 07/19/24 In Process (Accu-Chek Comfort 11:30 Insulin R (Human) PHA 07/19/24 In Process (Insulin R) 11:30 Dextrose 50% Syringe PHA 07/19/24 In Process 08:45 Date of Service: Jul 19, 2024 Billing Provider: KARRIE TORRES MD Common Visit Codes: NOT BILLABLE KARRIE TORRES MD Jul 19, 2024 09:25
[2024-07-19 09:52] LABS: Lymphocytes % (manual) 4 (10.0-50.0); Monocytes % (manual) 2 (0-12)
[2024-07-19] MEDS: NOREPINEPHRINE 8 MG/250ML KIT 250 ML IV SCH (10:10)
[2024-07-19 11:21] LABS: Platelet Estimate Decreased
[2024-07-19] MEDS: ACCU-CHEK COMFORT CURVE STRIP VI SCH (11:37)
[2024-07-19] MEDS: InsuLIN REG 1unit/0.01ml Soln (100units/ml) SC SCH (11:38)
--- NOTE | 2024-07-19 13:45 | DVHSR ---
APPROVED REPORT EXAM: Two-dimensional and M-mode echocardiogram with Doppler and color Doppler. Blood Pressure: 120/63 mmHg INDICATION EF RISK FACTORS Height: 5' 10", Weight: 150 DIMENSIONS LVDd5.1 (3.8-5.7cm)LA (2D)3.8 (1.9-4.0cm)Aortic Root3.4 (2.0-3.7cm) LVDs3.1 (2.5-4.0cm)LA (MM) (1.9-4.0cm)Aortic Cusp Exc1.7 (1.5-2.0cm) EF (%) 65.0 (55-70%)Rt. Atrium (1.9-4.0cm)Asc. 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
--- NOTE | 2024-07-19 14:27 | DVHPN2 ---
Progress Note Date Seen: Jul 19, 2024 Medical Necessity Reason Pt with a Central, PICC or Fol: Yes The following are medically ne: Galvez Catheter Subjective Patient reports: Feels worse Review of Systems: CVS:Abnormal, RESPIRATORY:Abnormal Objective vital signs Vital Sign Date Time Temp Pulse Resp B/P (MAP) Pulse Ox O2 Delivery O2 Flow Rate FiO2 07/19/24 14:00 68 07/19/24 14:00 17 95 Oxymizer 8 N/A 07/19/24 13:15 91.4 102/83 (89) 91.4 Total Intake and Output 07/18/24 07/18/24 07/19/24 15:00 23:00 07:00 Intake Total 650 ml 148.75 ml Output Total 550 ml 315 ml Balance 650 ml -550 ml -166.25 ml medications Current Medications Medications Dose Ordered Sig/Cassidy Route Start Time Stop Time Status Last Admin Dose Admin Metronidazole 100 ml @ 100 mls/hr Q8HR IV 07/18/24 06:00 07/19/24 05:53 100 MLS/HR Dextrose 50 ml UD PRN IV 07/17/24 23:45 Acetaminophen/ Hydrocodone Bitart 1 tab Q4HP PRN PO 07/17/24 23:45 Ondansetron HCl 4 mg Q4HP PRN IV 07/17/24 23:45 Acetaminophen 650 mg Q6HP PRN PO 07/17/24 23:45 Albuterol 2.5 mg Q6HPRN PRN NEB 07/18/24 00:45 Pantoprazole Sodium 40 mg DAILY IV 07/19/24 10:00 07/19/24 09:14 40 MG Ceftriaxone Sodium 50 ml @ 100 mls/hr DAILY@09 IV 07/19/24 09:00 07/19/24 08:55 100 MLS/HR Levothyroxine Sodium 100 mcg QAM@0600 PO 07/19/24 06:00 Phenylephrine HCl 250 ml @ 30 mls/hr Q8H20M IV 07/19/24 05:30 07/19/24 05:41 30 MLS/HR Potassium Chloride/Dextrose/ Sod Cl 1,000 ml @ 75 mls/hr [id number] IV 07/19/24 08:15 07/19/24 09:13 75 MLS/HR Insulin Glargine 10 units BID@0700,2200 SC 07/19/24 22:00 Diagnostic Test (Pha) 1 strip ACHS 07/19/24 11:30 07/19/24 11:37 1 STRIP Insulin Human Regular ACHS SC 07/19/24 11:30 07/19/24 11:38 8 UNITS Dextrose 50 ml UD PRN IV 07/19/24 08:45 Norepinephrine Bitartrate 250 ml @ 3.75 mls/hr Q24H IV 07/19/24 09:30 07/19/24 10:10 3.75 MLS/HR Examination: GENERAL:Abnormal, CVS:Abnormal, ABDOMEN:Abnormal, SKIN:Abnormal laboratory and microbiology Laboratory Tests 07/19/24 05:15 Test 07/19/24 05:15 Range/Units Serum Glucose 332 H 74-106 mg/dL Microbiology Date/Time Source Procedure Growth Status 07/18/24 21:12 Voided Urine Urine Culture - Preliminary Resulted 07/18/24 12:50 Blood Blood Culture - Preliminary NO GROWTH AFTER 24 HOURS OF INCUBATION. Resulted 07/18/24 11:45 Stool Stool Culture - Preliminary Resulted 07/18/24 11:45 Stool Shiga Toxin I & II - Final Resulted 07/18/24 11:45 Stool Clostridium difficile Toxin Assay Pending Resulted Problem List/Assessment/Plan Problem List/Assessment/Plan Severe hypokalemia likely in the setting of volume depletion Recurrent severe profuse diarrhea likely medication induced previously on an immunologic Severe dry skin etiology unknown autoimmune disorder? Protein calorie malnutrition afib CAD CHF shock Ultrasound of the kidney and CT of the abdomen shows no acute renal pathology Potassium replacement IV hypotonic fluid pressors to keep MAP > 65 pulm Sepsis workup and obtain C diff Recommend autoimmune workup patient notes ESR and CRP at this time are elevated Patient was poor overall prognosis and family wants diagnosis and prognosis to determine patient's life goals Plan discussed with: Other My Orders My Orders Orders - JAY CARTWRIGHT MD Procedure Category Date Status Time Glo; Comprehensive LAB 07/18/24 In Process Panel 16:07 Anca Panel LAB 07/18/24 In Process 16:07 Complement C3 & C4 LAB 07/18/24 In Process 16:07 Antithyroglobulin LAB 07/18/24 In Process Antibody 16:07 Antiparietal Cell LAB 07/18/24 In Process Antibody 16:07 Lupus Anticoagulant LAB 07/18/24 In Process Comp 16:07 Mitochondrial (M2) LAB 07/18/24 In Process Antibody 16:07 Communication Order ORDERS 07/18/24 Transmitted 16:15 JAY CARTWRIGHT MD Jul 19, 2024 14:27
[2024-07-19 15:31] LABS: Anion Gap 10 (5-15); Carbon Dioxide 27 mmol/L (20-31)
[2024-07-19 15:36] LABS: BUN/Creatinine Ratio 12.2 (10.0-20.0)
[2024-07-19 15:37] LABS: Blood Urea Nitrogen 33 mg/dL (9-23); Calcium 6.9 mg/dL (8.7-10.4); Chloride 110 mmol/L (98-107); Glucose 238 mg/dL (74-106); Sodium 147 mmol/L (136-145)
[2024-07-19 15:38] LABS: Potassium 2.3 mmol/L (3.5-5.1)
--- NOTE | 2024-07-19 16:01 | DVHINCON2 ---
Date Seen: Jul 19, 2024 Referring Physician MD Kate Reason for Consultation Respiratory failure History of Present Illness This is an 88-year-old male patient who presents to the emergency room with chief complaint of diarrhea for two months. The patient reports recently being seen at [facility] and states that they were unable to figure out why he was having diarrhea. The patient also mentions following up with Cardiology in the outpatient setting, where he was told that his heart was "fine". Cardiology has been consulted during this admission for respiratory failure. Initial twelve lead echocardiogram reveals atrial fibrillation (with artifact in all leads). alarm security or surveillance monitor reviewed and confirms patient is intermittently in atrial fibrillation. The patient and his family deny any previous history of cardiac arrhythmias. Significant past medical history includes dyslipidemia, type 2 diabetes mellitus, hypothyroidism, and chronic kidney disease. He also mentions a "undiagnosed skin problem". Past Medical History Past medical history reviewed. No other significant than mentioned above. Past Surgical History Denies Family History: Patient reports no known family medical history. Family History Family history reviewed. Social History Denies the use of tobacco, alcohol or illicit drugs. Allergies: Coded Allergies: NO KNOWN ALLERGIES (Unverified , 07/17/24) Home Meds Reported Medications Metoprolol Succinate (Metoprolol Succinate Er) 50 Mg Tab, 1 TAB PO DAILY for 90 Days, #90 07/18/24 Atorvastatin Calcium (ATORVASTATIN CALCIUM) 40 Mg Tab, 1 TAB PO DAILY for 90 Days, #90 07/18/24 Senna (Senna-Time) 8.6 Mg Tab, 2-4 TAB PO QHSP PRN for FOR CONSTIPATION for 15 Days, #60 07/18/24 Ipratropium-Albuterol (COMBIVENT RESPIMAT) Respimat Aer, 1 PUFF INH QID for 30 Days, #4 07/18/24 Amlodipine Besylate (Amlodipine Besylate) 5 Mg Tab, 1 TAB PO DAILY for 30 Days, #30 07/18/24 Insulin NPH Isophane & Reg (Hu (Humulin 70/30 Kwikpen (70-30) 100 Unit/ml) 1 Inj Inj, 20 UNITS SC BEFORE DINNER for 90 Days, #45 07/18/24 Insulin NPH Isophane & Reg (Hu (Humulin 70/30 Kwikpen (70-30) 100 Unit/ml) 1 Inj Inj, 30 UNITS SC BEFORE BREAKFAST for 90 Days, #45 07/18/24 Torsemide Injection (Torsemide) 20 Mg Tab, 1 TAB PO DAILY for 90 Days, #90 07/18/24 Levothyroxine Sodium (Levothyroxine Sodium) 175 Mcg Tab, 1 TAB PO QAM for 100 Days, #100 07/18/24 Home Meds Home medications reviewed. Current Medications Current Medications Medications (Trade) Dose Ordered Sig/Cassidy Route PRN Reason Start Time Stop Time Status Last Admin Ceftriaxone Sodium 50 ml @ 100 mls/hr DAILY@09 IV 07/19/24 09:00 07/18/24 00:34 DC Levofloxacin/ Dextrose 100 ml @ 100 mls/hr Q48H IV 07/19/24 01:00 07/18/24 11:03 DC Pantoprazole Sodium (Protonix) 40 mg DAILY IV 07/19/24 10:00 07/19/24 09:14 Ceftriaxone Sodium 50 ml @ 100 mls/hr DAILY@09 IV 07/19/24 09:00 07/19/24 08:55 Levothyroxine Sodium (Synthroid Tablet) 100 mcg QAM@0600 PO 07/19/24 06:00 Sodium Chloride 1,000 ml @ 75 mls/hr [id number] IV 07/18/24 16:15 07/19/24 08:01 DC 07/19/24 05:50 Potassium Chloride 50 ml @ 25 mls/hr Q2H IV 07/18/24 20:45 07/19/24 00:44 DC 07/19/24 00:36 Sodium Chloride 100 ml @ 50 mls/hr Q2H IV 07/18/24 20:45 07/19/24 00:44 DC 07/19/24 00:36 Phenylephrine HCl 250 ml @ 30 mls/hr Q8H20M IV 07/19/24 05:30 07/19/24 05:41 Potassium Chloride/Sodium Chloride 1,000 ml @ 75 mls/hr [id number] IV 07/19/24 08:00 07/19/24 08:03 DC Potassium Chloride/Dextrose/ Sod Cl 1,000 ml @ 75 mls/hr [id number] IV 07/19/24 08:15 07/19/24 09:13 Insulin Glargine (Lantus) 10 units BID@0700,2200 SC 07/19/24 22:00 Diagnostic Test (Pha) (Accu-Chek Comfort Curve T) 1 strip ACHS 07/19/24 11:30 07/19/24 11:37 Insulin Human Regular (InsuLIN R) ACHS SC 07/19/24 11:30 07/19/24 11:38 Dextrose 50 ml UD PRN IV Blood Sugar LESS THAN 60 07/19/24 08:45 Norepinephrine Bitartrate 250 ml @ 3.75 mls/hr Q24H IV 07/19/24 09:30 07/19/24 10:10 Review of Systems Constitutional: Generalized weakness Ears, Nose, & Throat: No symptom reported Eyes: No symptom reported Neurological: No symptoms reported Pulmonary/Respiratory: No symptoms reported Cardiovascular: No symptom reported Gastrointestinal: Diarrhea Genitourinary: No symptom reported Musculoskeletal: No symptom reported Skin: No symptom reported Psychiatric: No symptom reported Endocrine: No symptom reported Hematologic/Lymphatic: No symptom reported Vital Signs Vital Signs Date Time Temp Pulse Resp B/P (MAP) Pulse Ox O2 Delivery O2 Flow Rate FiO2 07/19/24 14:00 68 07/19/24 14:00 17 95 Oxymizer 8 N/A 07/19/24 13:15 91.4 102/83 (89) 91.4 Physical Exam General Appearance: Cooperative. Thin Pulmonary/Respiratory: Clear, bilateral breaths sounds. Cardiovascular/Chest: Regular rate and rhythm. Peripheral Pulses: 2+ Radial (R). 2+ Radial (L). 2+ Pedal (R). 2+ Pedal (L) Abdominal Exam: Normal bowel sounds. Ankle Exam: Nonpitting ankle edema Lower extremities: Nonpitting bilateral lower extremity edema Neuro/Mental Status: A/OX4, coherent. Thoughts/Psych: Normal thought pattern. Appropriate mood and affect. Good judgment and insight. Appearance: No acute distress. Skin Exam: Generalized dry, flaky skin Labs/Diagnostic Data Labs Test 07/19/24 15:01 07/19/24 11:34 07/19/24 09:35 07/19/24 09:18 Range/Units Sodium Level 147 H 136-145 mmol/L Potassium Level 2.3 *L 3.5-5.1 mmol/L Chloride Level 110 H 98-107 mmol/L Carbon Dioxide Level 27 20-31 mmol/L Anion Gap 10 5-15 Blood Urea Nitrogen 33 H 9-23 mg/dL Creatinine 2.70 H 0.700-1.30 mg/dL Glomerular Filtration Rate Calc 22 >90 mL/min BUN/Creatinine Ratio 12.2 10.0-20.0 Serum Glucose 238 H 74-106 mg/dL Calcium Level 6.9 L 8.7-10.4 mg/dL POC Glucose 325 H 70-106 mg/dl Blood Gas Specimen Type Arterial Blood Gas Sample Site Left brachial Blood Gas Patient Temperature 37.0 Arterial Blood Date Drawn [id number] Arterial Blood pH 7.365 7.350-7.450 Arterial Blood Partial Pressure CO2 52.2 H 35.0-48.0 mmHg Arterial Blood Partial Pressure O2 55.1 L 83.0-108.0 mmHg Arterial Blood HCO3 29.2 H 21.0-28.0 mmol/L Arterial Blood Oxygen Saturation 82.7 *L 94.0-98.0 % Arterial Blood Base Excess 3.0 -2.0-3.0 mmol/L Arterial Blood Oxyhemoglobin 82.2 L 94.0-98.0 % Arterial Blood Carboxyhemoglobin 0.5 0.5-1.5 % Arterial Blood Methemoglobin 0.1 0.0-1.5 % Cesario Test N/a Blood Gas Total Hemoglobin 11.20 L 13.5-17.5 g/dL Blood Gas Liter Flow 6.00 Blood Gas Modality Nasal cannula FiO2 % 44.0 Blood Gas Critical Value Read Back Yes Blood Gas Notified Whom bigg Love md Blood Gas Notified Time [id number] Blood Gas Notified By Electronic Scale Tester araseli cohen Lactic Acid Level 3.0 *H 0.4-2.0 mmol/L Test 07/19/24 05:15 07/18/24 21:12 07/18/24 17:57 07/18/24 11:45 Range/Units White Blood Count 4.9 4.4-10.8 10^3/uL Red Blood Count 4.01 L 4.5-5.90 10^6/uL Hemoglobin 10.9 L 13.5-17.5 g/dL Hematocrit 34.2 L 41.0-53.0 % Mean Corpuscular Volume 85.3 80.0-100.0 fL Mean Corpuscular Hemoglobin 27.3 L 28.0-32.0 pg Mean Corpuscular Hemoglobin Concent 32.0 32.0-36.0 g/dL Red Cell Distribution Width 16.8 H 11.8-14.3 % Platelet Count 116 L 140-450 10^3/uL Mean Platelet Volume 9.7 6.9-10.8 fL Neutrophils (%) (Auto) 37.0-80.0 % Lymphocytes (%) (Auto) 10.0-50.0 % Monocytes (%) (Auto) 0.0-12.0 % Basophils (%) (Auto) 0.0-2.0 % Neutrophils # (Auto) 1.6-8.6 10 ^3/uL Lymphocytes # (Auto) 0.4-5.4 10 ^3/uL Monocytes # (Auto) 0-1.3 10 ^3/uL Differential Total Cells Counted 100.0 100 Neutrophils % (Manual) 94 H 37.0-80.0 Band Neutrophils % (Manual) 0 Lymphocytes % (Manual) 4 L 10.0-50.0 Monocytes % (Manual) 2 0-12 Eosinophils % (Manual) 0 0-7 Basophils % (Manual) 0 0.0-2.0 Metamyelocytes % (manual) 0 Myelocytes % (Manual) 0 Promyelocytes % (Manual) 0 Blast Cells % (Manual) 0 Reactive Lymphocytes 0 Platelet Estimate Decreased Prothrombin Time 16.5 H 9.3-11.8 sec Prothrombin Time INR 1.63 H 0.9-1.15 Activated Partial Thromboplast Time 43.9 H 24.5-34.5 SEC Hemoglobin A1c 7.6 H <5.7 % A1C Magnesium Level 2.1 1.6-2.6 mg/dL Total Bilirubin 0.3 0.2-1.0 mg/dL Aspartate Amino Transferase (AST) 16 13-40 U/L Alanine Aminotransferase (ALT) 24 7-40 U/L Alkaline Phosphatase 93 46-116 U/L Total Protein 4.9 L 5.7-8.2 g/dL Albumin 2.4 L 3.2-4.8 g/dL Triglycerides Level 45 < 150 mg/dL Cholesterol Level < 50.0 < 200 mg/dL LDL Cholesterol 6 < 100 mg/dL HDL Cholesterol 13 L 40-59 mg/dL Lipase 13 12-53 U/L Urine Color Light-yellow Yellow Urine Clarity Clear Clear Urine pH 5.0 5.0-9.0 Urine Specific [place] 1.008 1.001-1.035 Urine Protein Negative Negative Urine Ketones Negative Negative Urine Blood 1+ H Negative /uL Urine Nitrite Negative Negative Urine Bilirubin Negative Negative Urine Urobilinogen Normal Negative mg/dL Urine Leukocyte Esterase Negative Negative /uL Urine RBC <1 0 - 3 /hpf Urine Microscopic WBC < 1 0-3 /HPF Urine Squamous Epithelial Cells Few <5 /hpf Urine Amorphous Crystals Few None Seen /hpf Urine Bacteria Few H None Seen /hpf Urine Creatinine 22.39 L 30.0-125.0 mg/dL Urine Protein/Creatinine Ratio 1.63 Urine Glucose 2+ H Normal mg/dL Urine Total Protein 36.5 H 1-14 mg/dL Stool Occult Blood Negative Negative Stool Occult Blood Sample #3 Negative Test 07/18/24 05:23 07/17/24 21:00 07/17/24 19:33 Range/Units Eosinophils (%) (Auto) 0.3 0.0-7.0 % Eosinophils # (Auto) 0 0-0.8 10 ^3/uL Basophils # (Auto) 0 0-0.2 10 ^3/uL Nucleated Red Blood Cells 2.6 % Troponin I High Sensitivity 28 </=54 ng/L C-Reactive Protein High Sensitivity > 20.00 H <1.0 mg/dL Thyroid Stimulating Hormone (TSH) 20.73 H 0.55-4.78 uIU/mL Erythrocyte Sedimentation Rate 50 H 0-20 mm/hr B-Type Natriuretic Peptide 449.41 0-100 pg/mL Microbiology Date/Time Source Procedure Growth Status 07/18/24 21:12 Voided Urine Urine Culture - Preliminary Resulted 07/18/24 12:50 Blood Blood Culture - Preliminary NO GROWTH AFTER 24 HOURS OF INCUBATION. Resulted 07/18/24 11:45 Stool Stool Culture - Preliminary Resulted 07/18/24 11:45 Stool Shiga Toxin I & II - Final Resulted 07/18/24 11:45 Stool Clostridium difficile Toxin Assay Pending Resulted Assessment Atrial fibrillation, new onset Septic shock Moderate aortic valve regurgitation Acute hypoxic respiratory failure secondary to pneumonia Hypothermia Type 2 diabetes mellitus Chronic kidney disease Severe hypokalemia Thyroid disease ?Psoriasis Plan/Recommendation We will continue with the following plan/recommendations (): * Transthoracic echocardiogram reveals EF 55% with severe LVH. Septum is hypokinetic * Continue vasopressors for hemodynamic support * [id number] VASc score: 3 points, HAS-BLED: 2 points * Therapeutic Lovenox (renal dose). Consider NOAC therapy with patient upon d/c if feasible * Unable to initiate beta-isabell given vasopressors * Monitor and replete electrolytes as needed, keep potassium greater than four a nd magnesium greater than two * Close Cardiac surveillance Case discussed with . Per bedside RN, the patient family had a lengthy discussion with the primary care team. The patient's family and the patient are opting for hospice care. Given the patient's poor prognosis and plans for hospice care, there is no further inpatient cardiac workup indicated at this time. Thank you for allowing us to care for this patient. Please call with any questions or concerns. Critical care time spent: 44 minutes This medical document was created using an electronic medical record system with voice recognition software and computerized dictation system. Although this document has been carefully reviewed, there might still be some phonetic and typographical errors. Occasional wrong-word or ``sound-alike substitutions may have occurred due to the inherent limitations of voice recognition software. These areas are purely typographical due to imperfections of the software programs and do not reflect any compromise in the patient's medical care. Please read the chart carefully and recognize, using context, where these substitutions have occurred. Plan discussed with: Patient, Spouse, Daughter NYHA Physical activity limitations: NA Date of Service: Jul 19, 2024 Billing Provider: MAXIM MARADIAGA Cardiology Common Codes: 09609-HAOOSZX INP/OBS CARE (High) Cardiology Consultation Codes: 28668-[id number] CONSULT <45MIN MAXIM MARADIAGA Jul 19, 2024 16:01
--- NOTE | 2024-07-19 19:22 | DVHINCON2 ---
Date of service: Jul 19, [address] Love Reason for Consultation Diarrhea for two months History of Present Illness This 88-year-old male presented to the emergency room with complaints of diarrhea for 2 minutes patient has been to multiple hospitals apparently for this problem. And she had multiple workup without any the without any diagnosis apparently he is a poor historian hence difficult to get much detailed history. Patient also has got some skin rash the stool studies have been negative for CAC diff. Past Medical History hyperglycemia. Past Surgical History None Family History: Patient reports no known family medical history. Family History Noncontributory Social History Denies smoking or drinking Allergies: Coded Allergies: NO KNOWN ALLERGIES (Unverified , 07/17/24) Home Meds Reported Medications Metoprolol Succinate (Metoprolol Succinate Er) 50 Mg Tab, 1 TAB PO DAILY for 90 Days, #90 07/18/24 Atorvastatin Calcium (ATORVASTATIN CALCIUM) 40 Mg Tab, 1 TAB PO DAILY for 90 Days, #90 07/18/24 Senna (Senna-Time) 8.6 Mg Tab, 2-4 TAB PO QHSP PRN for FOR CONSTIPATION for 15 Days, #60 07/18/24 Ipratropium-Albuterol (COMBIVENT RESPIMAT) Respimat Aer, 1 PUFF INH QID for 30 Days, #4 07/18/24 Amlodipine Besylate (Amlodipine Besylate) 5 Mg Tab, 1 TAB PO DAILY for 30 Days, #30 07/18/24 Insulin NPH Isophane & Reg (Hu (Humulin 70/30 Kwikpen (70-30) 100 Unit/ml) 1 Inj Inj, 20 UNITS SC BEFORE DINNER for 90 Days, #45 07/18/24 Insulin NPH Isophane & Reg (Hu (Humulin 70/30 Kwikpen (70-30) 100 Unit/ml) 1 Inj Inj, 30 UNITS SC BEFORE BREAKFAST for 90 Days, #45 07/18/24 Torsemide Injection (Torsemide) 20 Mg Tab, 1 TAB PO DAILY for 90 Days, #90 07/18/24 Levothyroxine Sodium (Levothyroxine Sodium) 175 Mcg Tab, 1 TAB PO QAM for 100 Days, #100 07/18/24 Current Medications Current Medications Medications (Trade) Dose Ordered Sig/Cassidy Route PRN Reason Start Time Stop Time Status Last Admin Ceftriaxone Sodium 50 ml @ 100 mls/hr DAILY@09 IV 07/19/24 09:00 07/18/24 00:34 DC Levofloxacin/ Dextrose 100 ml @ 100 mls/hr Q48H IV 07/19/24 01:00 07/18/24 11:03 DC Pantoprazole Sodium (Protonix) 40 mg DAILY IV 07/19/24 10:00 07/19/24 09:14 Ceftriaxone Sodium 50 ml @ 100 mls/hr DAILY@09 IV 07/19/24 09:00 07/19/24 08:55 Levothyroxine Sodium (Synthroid Tablet) 100 mcg QAM@0600 PO 07/19/24 06:00 Potassium Chloride 50 ml @ 25 mls/hr Q2H IV 07/18/24 20:45 07/19/24 00:44 DC 07/19/24 00:36 Sodium Chloride 100 ml @ 50 mls/hr Q2H IV 07/18/24 20:45 07/19/24 00:44 DC 07/19/24 00:36 Phenylephrine HCl 250 ml @ 30 mls/hr Q8H20M IV 07/19/24 05:30 07/19/24 05:41 Potassium Chloride/Sodium Chloride 1,000 ml @ 75 mls/hr [id number] IV 07/19/24 08:00 07/19/24 08:03 DC Potassium Chloride/Dextrose/ Sod Cl 1,000 ml @ 75 mls/hr [id number] IV 07/19/24 08:15 07/19/24 09:13 Insulin Glargine (Lantus) 10 units BID@0700,2200 SC 07/19/24 22:00 Diagnostic Test (Pha) (Accu-Chek Comfort Curve T) 1 strip ACHS 07/19/24 11:30 07/19/24 17:18 Insulin Human Regular (InsuLIN R) ACHS SC 07/19/24 11:30 07/19/24 17:20 Dextrose 50 ml UD PRN IV Blood Sugar LESS THAN 60 07/19/24 08:45 Norepinephrine Bitartrate 250 ml @ 3.75 mls/hr Q24H IV 07/19/24 09:30 07/19/24 10:10 Enoxaparin Sodium (Lovenox) 70 mg DAILY SC 07/20/24 10:00 Review of Systems Noncontributory Vital Signs Vital Signs Date Time Temp Pulse Resp B/P (MAP) Pulse Ox O2 Delivery O2 Flow Rate FiO2 07/19/24 18:15 122/62 07/19/24 18:15 90.1 79 13 92 194.2 07/19/24 18:00 Oxymizer 8 N/A Physical Exam Averagely built and nourished male slightly confused in no acute distress son HEENT examination no pallor no icterus Lungs clear Heart regular Abdomen is soft no tenderness no rigidity no guarding No masses Extremities edema 1+ edema Labs/Diagnostic Data Labs Test 07/19/24 17:08 07/19/24 15:01 07/19/24 09:35 07/19/24 09:18 Range/Units POC Glucose 150 H 70-106 mg/dl Sodium Level 147 H 136-145 mmol/L Potassium Level 2.3 *L 3.5-5.1 mmol/L Chloride Level 110 H 98-107 mmol/L Carbon Dioxide Level 27 20-31 mmol/L Anion Gap 10 5-15 Blood Urea Nitrogen 33 H 9-23 mg/dL Creatinine 2.70 H 0.700-1.30 mg/dL Glomerular Filtration Rate Calc 22 >90 mL/min BUN/Creatinine Ratio 12.2 10.0-20.0 Serum Glucose 238 H 74-106 mg/dL Calcium Level 6.9 L 8.7-10.4 mg/dL Blood Gas Specimen Type Arterial Blood Gas Sample Site Left brachial Blood Gas Patient Temperature 37.0 Arterial Blood Date Drawn [id number] Arterial Blood pH 7.365 7.350-7.450 Arterial Blood Partial Pressure CO2 52.2 H 35.0-48.0 mmHg Arterial Blood Partial Pressure O2 55.1 L 83.0-108.0 mmHg Arterial Blood HCO3 29.2 H 21.0-28.0 mmol/L Arterial Blood Oxygen Saturation 82.7 *L 94.0-98.0 % Arterial Blood Base Excess 3.0 -2.0-3.0 mmol/L Arterial Blood Oxyhemoglobin 82.2 L 94.0-98.0 % Arterial Blood Carboxyhemoglobin 0.5 0.5-1.5 % Arterial Blood Methemoglobin 0.1 0.0-1.5 % Cesario Test N/a Blood Gas Total Hemoglobin 11.20 L 13.5-17.5 g/dL Blood Gas Liter Flow 6.00 Blood Gas Modality Nasal cannula FiO2 % 44.0 Blood Gas Critical Value Read Back Yes Blood Gas Notified Whom bigg Love md Blood Gas Notified Time [id number] Blood Gas Notified By Continuity Tester araseli cohen Lactic Acid Level 3.0 *H 0.4-2.0 mmol/L Test 07/19/24 05:15 07/18/24 21:12 07/18/24 17:57 07/18/24 11:45 Range/Units White Blood Count 4.9 4.4-10.8 10^3/uL Red Blood Count 4.01 L 4.5-5.90 10^6/uL Hemoglobin 10.9 L 13.5-17.5 g/dL Hematocrit 34.2 L 41.0-53.0 % Mean Corpuscular Volume 85.3 80.0-100.0 fL Mean Corpuscular Hemoglobin 27.3 L 28.0-32.0 pg Mean Corpuscular Hemoglobin Concent 32.0 32.0-36.0 g/dL Red Cell Distribution Width 16.8 H 11.8-14.3 % Platelet Count 116 L 140-450 10^3/uL Mean Platelet Volume 9.7 6.9-10.8 fL Neutrophils (%) (Auto) 37.0-80.0 % Lymphocytes (%) (Auto) 10.0-50.0 % Monocytes (%) (Auto) 0.0-12.0 % Basophils (%) (Auto) 0.0-2.0 % Neutrophils # (Auto) 1.6-8.6 10 ^3/uL Lymphocytes # (Auto) 0.4-5.4 10 ^3/uL Monocytes # (Auto) 0-1.3 10 ^3/uL Differential Total Cells Counted 100.0 100 Neutrophils % (Manual) 94 H 37.0-80.0 Band Neutrophils % (Manual) 0 Lymphocytes % (Manual) 4 L 10.0-50.0 Monocytes % (Manual) 2 0-12 Eosinophils % (Manual) 0 0-7 Basophils % (Manual) 0 0.0-2.0 Metamyelocytes % (manual) 0 Myelocytes % (Manual) 0 Promyelocytes % (Manual) 0 Blast Cells % (Manual) 0 Reactive Lymphocytes 0 Platelet Estimate Decreased Prothrombin Time 16.5 H 9.3-11.8 sec Prothrombin Time INR 1.63 H 0.9-1.15 Activated Partial Thromboplast Time 43.9 H 24.5-34.5 SEC Hemoglobin A1c 7.6 H <5.7 % A1C Magnesium Level 2.1 1.6-2.6 mg/dL Total Bilirubin 0.3 0.2-1.0 mg/dL Aspartate Amino Transferase (AST) 16 13-40 U/L Alanine Aminotransferase (ALT) 24 7-40 U/L Alkaline Phosphatase 93 46-116 U/L Total Protein 4.9 L 5.7-8.2 g/dL Albumin 2.4 L 3.2-4.8 g/dL Triglycerides Level 45 < 150 mg/dL Cholesterol Level < 50.0 < 200 mg/dL LDL Cholesterol 6 < 100 mg/dL HDL Cholesterol 13 L 40-59 mg/dL Lipase 13 12-53 U/L Urine Color Light-yellow Yellow Urine Clarity Clear Clear Urine pH 5.0 5.0-9.0 Urine Specific [place] 1.008 1.001-1.035 Urine Protein Negative Negative Urine Ketones Negative Negative Urine Blood 1+ H Negative /uL Urine Nitrite Negative Negative Urine Bilirubin Negative Negative Urine Urobilinogen Normal Negative mg/dL Urine Leukocyte Esterase Negative Negative /uL Urine RBC <1 0 - 3 /hpf Urine Microscopic WBC < 1 0-3 /HPF Urine Squamous Epithelial Cells Few <5 /hpf Urine Amorphous Crystals Few None Seen /hpf Urine Bacteria Few H None Seen /hpf Urine Creatinine 22.39 L 30.0-125.0 mg/dL Urine Protein/Creatinine Ratio 1.63 Urine Glucose 2+ H Normal mg/dL Urine Total Protein 36.5 H 1-14 mg/dL Stool Occult Blood Negative Negative Stool Occult Blood Sample #3 Negative Test 07/18/24 05:23 07/17/24 21:00 07/17/24 19:33 Range/Units Eosinophils (%) (Auto) 0.3 0.0-7.0 % Eosinophils # (Auto) 0 0-0.8 10 ^3/uL Basophils # (Auto) 0 0-0.2 10 ^3/uL Nucleated Red Blood Cells 2.6 % Troponin I High Sensitivity 28 </=54 ng/L C-Reactive Protein High Sensitivity > 20.00 H <1.0 mg/dL Thyroid Stimulating Hormone (TSH) 20.73 H 0.55-4.78 uIU/mL Erythrocyte Sedimentation Rate 50 H 0-20 mm/hr B-Type Natriuretic Peptide 449.41 0-100 pg/mL Microbiology Date/Time Source Procedure Growth Status 07/18/24 21:12 Voided Urine Urine Culture - Preliminary Resulted 07/18/24 12:50 Blood Blood Culture - Preliminary NO GROWTH AFTER 24 HOURS OF INCUBATION. Resulted 07/18/24 11:45 Stool Stool Culture - Preliminary Resulted 07/18/24 11:45 Stool Shiga Toxin I & II - Final Resulted 07/18/24 11:45 Stool Clostridium difficile Toxin Assay - Final Resulted Assessment 88-year-old female with complaints of diarrhea has pain has history of diabetes mellitus thyroid and chronic renal failure Labs showed lactic acid level high white blood count is 6.7 hemoglobin is 12.41 BNP high C diff is negative. Plan/Recommendation We will recommend stool studies for O&P C&S symptomatic treatment Infectious disease consult If diarrhea persist trial of cholestyramine May need further evaluation if symptoms persist and any bleeding etc. Thank you Dr. Mer Gale discussed with: Other RHONDA DE LA ROSA MD Jul 19, 2024 19:22
[2024-07-19] MEDS: HYDROcodone-ACET 5/325MG TAB PO PRN (20:39)
[2024-07-19] MEDS: INSULIN LANTUS (GLARGINE) 1 /0.01ml (100units/ml) SC SCH (22:00)
--- NOTE | 2024-07-19 22:14 | DVHINCON2 ---
Date of service: Jul 19, 2024 Referring Physician Iza Love MD Reason for Consultation Acute on chronic hypoxic respiratory failure, chronic hypercarbic respiratory failure, multifocal pneumonia History of Present Illness An 88-year-old man with past medical history that includes hypothyroidism, diabetes mellitus, chronic kidney disease and skin condition who presented to ED on 07/17/24 with c/o shortness of breath and diarrhea. Patient's daughters at the bedside reported 1-day history of worsening shortness of breath. He also has 2-month history of watery diarrhea, has been to multiple hospitals apparently for this problem, undergone extensive workup without any diagnosis. He has also had increased swelling to bilateral lower extremities. No chest pain or tightness. No cough or fever. Patient was admitted for further care, and pulmonary consultation is requested for evaluation and management due to the above findings. Review of Systems: 14-point review of systems negative unless otherwise noted above. Past Medical History: Hypothyroidism, diabetes mellitus, dyslipidemia, chronic kidney disease, and chronic skin condition x12 years. Past Surgical History: None Medications: Reviewed. Allergies: No known drug allergies. Family History: No family history of premature CAD. No family history of lung disorders. Social History: Nonsmoker. No alcohol or illicit drug use. Family History: Patient reports no known family medical history. Allergies: Coded Allergies: NO KNOWN ALLERGIES (Unverified , 07/17/24) Home Meds Reported Medications Metoprolol Succinate (Metoprolol Succinate Er) 50 Mg Tab, 1 TAB PO DAILY for 90 Days, #90 07/18/24 Atorvastatin Calcium (ATORVASTATIN CALCIUM) 40 Mg Tab, 1 TAB PO DAILY for 90 Days, #90 07/18/24 Senna (Senna-Time) 8.6 Mg Tab, 2-4 TAB PO QHSP PRN for FOR CONSTIPATION for 15 Days, #60 07/18/24 Ipratropium-Albuterol (COMBIVENT RESPIMAT) Respimat Aer, 1 PUFF INH QID for 30 Days, #4 07/18/24 Amlodipine Besylate (Amlodipine Besylate) 5 Mg Tab, 1 TAB PO DAILY for 30 Days, #30 07/18/24 Insulin NPH Isophane & Reg (Hu (Humulin 70/30 Kwikpen (70-30) 100 Unit/ml) 1 Inj Inj, 20 UNITS SC BEFORE DINNER for 90 Days, #45 07/18/24 Insulin NPH Isophane & Reg (Hu (Humulin 70/30 Kwikpen (70-30) 100 Unit/ml) 1 Inj Inj, 30 UNITS SC BEFORE BREAKFAST for 90 Days, #45 07/18/24 Torsemide Injection (Torsemide) 20 Mg Tab, 1 TAB PO DAILY for 90 Days, #90 07/18/24 Levothyroxine Sodium (Levothyroxine Sodium) 175 Mcg Tab, 1 TAB PO QAM for 100 Days, #100 07/18/24 Current Medications Current Medications Medications (Trade) Dose Ordered Sig/Cassidy Route PRN Reason Start Time Stop Time Status Last Admin Ceftriaxone Sodium 50 ml @ 100 mls/hr DAILY@09 IV 07/19/24 09:00 07/18/24 00:34 DC Levofloxacin/ Dextrose 100 ml @ 100 mls/hr Q48H IV 07/19/24 01:00 07/18/24 11:03 DC Pantoprazole Sodium (Protonix) 40 mg DAILY IV 07/19/24 10:00 07/19/24 09:14 Ceftriaxone Sodium 50 ml @ 100 mls/hr DAILY@09 IV 07/19/24 09:00 07/19/24 08:55 Levothyroxine Sodium (Synthroid Tablet) 100 mcg QAM@0600 PO 07/19/24 06:00 Phenylephrine HCl 250 ml @ 30 mls/hr Q8H20M IV 07/19/24 05:30 07/19/24 05:41 Potassium Chloride/Sodium Chloride 1,000 ml @ 75 mls/hr [id number] IV 07/19/24 08:00 07/19/24 08:03 DC Potassium Chloride/Dextrose/ Sod Cl 1,000 ml @ 75 mls/hr [id number] IV 07/19/24 08:15 07/19/24 09:13 Insulin Glargine (Lantus) 10 units BID@0700,2200 SC 07/19/24 22:00 07/19/24 22:00 Diagnostic Test (Pha) (Accu-Chek Comfort Curve T) 1 strip ACHS 07/19/24 11:30 07/19/24 21:51 Insulin Human Regular (InsuLIN R) ACHS SC 07/19/24 11:30 07/19/24 17:20 Dextrose 50 ml UD PRN IV Blood Sugar LESS THAN 60 07/19/24 08:45 Norepinephrine Bitartrate 250 ml @ 3.75 mls/hr Q24H IV 07/19/24 09:30 07/19/24 10:10 Enoxaparin Sodium (Lovenox) 70 mg DAILY SC 07/20/24 10:00 Vital Signs Vital Signs Date Time Temp Pulse Resp B/P (MAP) Pulse Ox O2 Delivery O2 Flow Rate FiO2 07/19/24 20:00 88.9 69 16 116/61 (79) 90 88.9 07/19/24 18:00 Oxymizer 8 N/A Physical Exam Gen.: Patient lying in bed in no apparent distress. On supplemental oxygen. Head: Normocephalic, atraumatic. Eyes: EOMI/PERRLA. Ears: Normal hearing. Normal anatomy. Neck/trachea: Trachea midline, supple. Nose: Normal external anatomy. Mouth: Moist mucous membranes. Chest: Decreased air entry bilaterally. No wheezing or rhonchi. Cardiovascular: Positive S1, positive S2. Regular rate and rhythm. Abdomen: Positive bowel sounds in all 4 quadrants. Soft, non-tender, non- distended. : Deferred. Rectal: Deferred. Skin: Warm, dry. Intact. Extremities: 2+ radial pulses bilaterally. No lower extremity edema. Neuro: Awake, alert, oriented x3. No gross motor or sensory deficits. Cranial nerves II through XII intact. Gait not assessed. Labs/Diagnostic Data Labs Test 07/19/24 17:08 07/19/24 15:01 07/19/24 09:35 07/19/24 09:18 Range/Units POC Glucose 150 H 70-106 mg/dl Sodium Level 147 H 136-145 mmol/L Potassium Level 2.3 *L 3.5-5.1 mmol/L Chloride Level 110 H 98-107 mmol/L Carbon Dioxide Level 27 20-31 mmol/L Anion Gap 10 5-15 Blood Urea Nitrogen 33 H 9-23 mg/dL Creatinine 2.70 H 0.700-1.30 mg/dL Glomerular Filtration Rate Calc 22 >90 mL/min BUN/Creatinine Ratio 12.2 10.0-20.0 Serum Glucose 238 H 74-106 mg/dL Calcium Level 6.9 L 8.7-10.4 mg/dL Blood Gas Specimen Type Arterial Blood Gas Sample Site Left brachial Blood Gas Patient Temperature 37.0 Arterial Blood Date Drawn [id number] Arterial Blood pH 7.365 7.350-7.450 Arterial Blood Partial Pressure CO2 52.2 H 35.0-48.0 mmHg Arterial Blood Partial Pressure O2 55.1 L 83.0-108.0 mmHg Arterial Blood HCO3 29.2 H 21.0-28.0 mmol/L Arterial Blood Oxygen Saturation 82.7 *L 94.0-98.0 % Arterial Blood Base Excess 3.0 -2.0-3.0 mmol/L Arterial Blood Oxyhemoglobin 82.2 L 94.0-98.0 % Arterial Blood Carboxyhemoglobin 0.5 0.5-1.5 % Arterial Blood Methemoglobin 0.1 0.0-1.5 % Cesario Test N/a Blood Gas Total Hemoglobin 11.20 L 13.5-17.5 g/dL Blood Gas Liter Flow 6.00 Blood Gas Modality Nasal cannula FiO2 % 44.0 Blood Gas Critical Value Read Back Yes Blood Gas Notified Whom bigg Love md Blood Gas Notified Time [id number] Blood Gas Notified By Melter Supervisor Oxygen Furnace araseli cohen Lactic Acid Level 3.0 *H 0.4-2.0 mmol/L Test 07/19/24 05:15 07/18/24 21:12 07/18/24 17:57 07/18/24 11:45 Range/Units White Blood Count 4.9 4.4-10.8 10^3/uL Red Blood Count 4.01 L 4.5-5.90 10^6/uL Hemoglobin 10.9 L 13.5-17.5 g/dL Hematocrit 34.2 L 41.0-53.0 % Mean Corpuscular Volume 85.3 80.0-100.0 fL Mean Corpuscular Hemoglobin 27.3 L 28.0-32.0 pg Mean Corpuscular Hemoglobin Concent 32.0 32.0-36.0 g/dL Red Cell Distribution Width 16.8 H 11.8-14.3 % Platelet Count 116 L 140-450 10^3/uL Mean Platelet Volume 9.7 6.9-10.8 fL Neutrophils (%) (Auto) 37.0-80.0 % Lymphocytes (%) (Auto) 10.0-50.0 % Monocytes (%) (Auto) 0.0-12.0 % Basophils (%) (Auto) 0.0-2.0 % Neutrophils # (Auto) 1.6-8.6 10 ^3/uL Lymphocytes # (Auto) 0.4-5.4 10 ^3/uL Monocytes # (Auto) 0-1.3 10 ^3/uL Differential Total Cells Counted 100.0 100 Neutrophils % (Manual) 94 H 37.0-80.0 Band Neutrophils % (Manual) 0 Lymphocytes % (Manual) 4 L 10.0-50.0 Monocytes % (Manual) 2 0-12 Eosinophils % (Manual) 0 0-7 Basophils % (Manual) 0 0.0-2.0 Metamyelocytes % (manual) 0 Myelocytes % (Manual) 0 Promyelocytes % (Manual) 0 Blast Cells % (Manual) 0 Reactive Lymphocytes 0 Platelet Estimate Decreased Prothrombin Time 16.5 H 9.3-11.8 sec Prothrombin Time INR 1.63 H 0.9-1.15 Activated Partial Thromboplast Time 43.9 H 24.5-34.5 SEC Hemoglobin A1c 7.6 H <5.7 % A1C Magnesium Level 2.1 1.6-2.6 mg/dL Total Bilirubin 0.3 0.2-1.0 mg/dL Aspartate Amino Transferase (AST) 16 13-40 U/L Alanine Aminotransferase (ALT) 24 7-40 U/L Alkaline Phosphatase 93 46-116 U/L Total Protein 4.9 L 5.7-8.2 g/dL Albumin 2.4 L 3.2-4.8 g/dL Triglycerides Level 45 < 150 mg/dL Cholesterol Level < 50.0 < 200 mg/dL LDL Cholesterol 6 < 100 mg/dL HDL Cholesterol 13 L 40-59 mg/dL Lipase 13 12-53 U/L Urine Color Light-yellow Yellow Urine Clarity Clear Clear Urine pH 5.0 5.0-9.0 Urine Specific [place] 1.008 1.001-1.035 Urine Protein Negative Negative Urine Ketones Negative Negative Urine Blood 1+ H Negative /uL Urine Nitrite Negative Negative Urine Bilirubin Negative Negative Urine Urobilinogen Normal Negative mg/dL Urine Leukocyte Esterase Negative Negative /uL Urine RBC <1 0 - 3 /hpf Urine Microscopic WBC < 1 0-3 /HPF Urine Squamous Epithelial Cells Few <5 /hpf Urine Amorphous Crystals Few None Seen /hpf Urine Bacteria Few H None Seen /hpf Urine Creatinine 22.39 L 30.0-125.0 mg/dL Urine Protein/Creatinine Ratio 1.63 Urine Glucose 2+ H Normal mg/dL Urine Total Protein 36.5 H 1-14 mg/dL Stool Occult Blood Negative Negative Stool Occult Blood Sample #3 Negative Test 07/18/24 05:23 07/17/24 21:00 07/17/24 19:33 Range/Units Eosinophils (%) (Auto) 0.3 0.0-7.0 % Eosinophils # (Auto) 0 0-0.8 10 ^3/uL Basophils # (Auto) 0 0-0.2 10 ^3/uL Nucleated Red Blood Cells 2.6 % Troponin I High Sensitivity 28 </=54 ng/L C-Reactive Protein High Sensitivity > 20.00 H <1.0 mg/dL Thyroid Stimulating Hormone (TSH) 20.73 H 0.55-4.78 uIU/mL Erythrocyte Sedimentation Rate 50 H 0-20 mm/hr B-Type Natriuretic Peptide 449.41 0-100 pg/mL Microbiology Date/Time Source Procedure Growth Status 07/18/24 21:12 Voided Urine Urine Culture - Preliminary Resulted 07/18/24 12:50 Blood Blood Culture - Preliminary NO GROWTH AFTER 24 HOURS OF INCUBATION. Resulted 07/18/24 11:45 Stool Stool Culture - Preliminary Resulted 07/18/24 11:45 Stool Shiga Toxin I & II - Final Resulted 07/18/24 11:45 Stool Clostridium difficile Toxin Assay - Final Resulted Assessment Impression: Acute on chronic hypoxic respiratory failure Chronic hypercarbic respiratory failure Dependence on supplemental oxygen Multifocal pneumonia Acute on chronic CHF Colitis Acute kidney injury DM type II Shock, septic Plan: Supplemental oxygen 8 LPM Oxymizer Titrate to keep O2 sats above 92%. Taper O2 as tolerated. Chemical code. On pressors for hemodynamic support Levophed 2 mcg/min Titrate to keep mean arterial pressure greater than 65 mmHg. Cardiology recommendations appreciated Echo report reviewed. Continue bronchodilators. Continue antibiotics Follow up cultures Accu-Cheks, ISS Monitor renal function. Monitor electrolytes. Supplement as necessary. Monitor ins and outs. GI prophylaxis - Protonix DVT prophylaxis. Prognosis: Poor given patient's multiple co-morbidities. Condition: Critical Rest of plan per hospitalist and other consultants. A total of 36 minutes of critical care time was spent reviewing the patient record, examining the patient, making a diagnostic and therapeutic plan, discussing this plan with the medical personnel, following up on diagnostic studies and following the patient for clinical stability excluding any and all procedures. At least 50% of this time was spent in direct, oaeu-dt-tuse contact. Thank you, Dr. Love, for allowing me to participate in this patient's care. Further recommendations will depend on the patient's clinical course. Please do not hesitate to contact me if you have any questions or concerns. This medical document was created using an electronic medical record system with [employer] dictation system. Although these documentations are being carefully reviewed, there may still be some phonetic and typographical changes. The errors are purely typographical, due to imperfection on the software program, and do not reflect any compromise in the patient's medical care. Plan discussed with: Patient, Other (DAVID Garcia/Dr. Love) SELIN GOODSON MD Jul 19, 2024 22:14
[2024-07-19] MEDS: TEMAZEPAM 15 MG CAP PO ONE (23:18)
[2024-07-20] VITALS (66 sets, daily range): BP systolic 80–124; BP diastolic 29–73; PULSE 57–133; RESP 9–35; TEMP 74.8–98.8; O2SAT 50–97
[2024-07-20 05:20] LABS: Basophils # (auto) 0 10 ^3/uL (0-0.2); Basophils % (auto) 0.1 % (0.0-2.0); Eosinophils # (auto) 0 10 ^3/uL (0-0.8); Eosinophils % (auto) 0.3 % (0.0-7.0); Hematocrit 34.4 % (41.0-53.0); Hemoglobin 10.9 g/dL (13.5-17.5); Lymphocytes # (auto) 0.4 10 ^3/uL (0.4-5.4); Lymphocytes % (auto) 7.2 % (10.0-50.0); Mean Corpuscular Hemoglobin 27.3 pg (28.0-32.0); Mean Corpuscular Hgb Conc. 31.7 g/dL (32.0-36.0); Mean Corpuscular Volume 86.2 fL (80.0-100.0); Monocytes # (auto) 0.1 10 ^3/uL (0-1.3); Monocytes % (auto) 1.6 % (0.0-12.0); Neutrophils # (auto) 5.5 10 ^3/uL (1.6-8.6); Neutrophils % (auto) 90.8 % (37.0-80.0); Nucleated Red Blood Cells % 0.2 %; Platelet Count (auto) 87 10^3/uL (140-450); Red Blood Cells 3.99 10^6/uL (4.5-5.90); White Blood Cell 6.1 10^3/uL (4.4-10.8)
[2024-07-20 05:32] LABS: Alanine Aminotransferase 25 U/L (7-40); Alkaline Phosphatase 90 U/L (46-116); Anion Gap 6 (5-15); Aspartate Aminotransferase 20 U/L (13-40); BUN/Creatinine Ratio 11.7 (10.0-20.0); Carbon Dioxide 29 mmol/L (20-31)
[2024-07-20 05:33] LABS: Chloride 113 mmol/L (98-107); Sodium 148 mmol/L (136-145)
[2024-07-20 05:34] LABS: Albumin 2.4 g/dL (3.2-4.8); Bilirubin, Total < 0.2 mg/dL (0.2-1.0); Blood Urea Nitrogen 30 mg/dL (9-23); Calcium 6.9 mg/dL (8.7-10.4); Total Protein 4.8 g/dL (5.7-8.2)
[2024-07-20 05:35] LABS: Glucose 39 mg/dL (74-106); Potassium 2.4 mmol/L (3.5-5.1)
[2024-07-20] MEDS: DEXTROSE (50%) 50ML SYRG IV PRN (05:40)
[2024-07-20] MEDS: POTASSIUM CHL 20MEQ/50ML 50 ML IV SCH (06:53)
[2024-07-20 08:06] LABS: Complement C3 107 mg/dL (82-167)
[2024-07-20 09:07] LABS: Anti-Centromere B Antibody <0.2 AI (0.0-0.9); Anti-Jo-1 Antibody <0.2 AI (0.0-0.9); Anti-dsDNA Antibody <1 IU/mL (0-9); Antichromatin Antibody <0.2 AI (0.0-0.9); Antiscleroderma-70 Antibody <0.2 AI (0.0-0.9); RNP Antibody <0.2 AI (0.0-0.9); Sjogren's Anti-SS-A Antibody <0.2 AI (0.0-0.9); Sjogren's Anti-SS-B Antibody <0.2 AI (0.0-0.9); Smith Antibody <0.2 AI (0.0-0.9)
[2024-07-20] MEDS ORDERED: ENOXAPARIN SOD 100 MG/1 ML SYRINGE SC SCH (10:00)
--- NOTE | 2024-07-20 10:38 | DVHDS2 ---
Discharge Summary Date of Admission Jul 17, 2024 at 23:37 Date of Discharge: Jul 20, 2024 Labs/Diagnostic Data: Laboratory Results Test 07/20/24 06:19 07/20/24 04:58 07/19/24 09:35 07/19/24 09:18 POC Glucose 96 mg/dl (70-106) White Blood Count 6.1 10^3/uL (4.4-10.8) Red Blood Count 3.99 10^6/uL (4.5-5.90) Hemoglobin 10.9 g/dL (13.5-17.5) Hematocrit 34.4 % (41.0-53.0) Mean Corpuscular Volume 86.2 fL (80.0-100.0) Mean Corpuscular Hemoglobin 27.3 pg (28.0-32.0) Mean Corpuscular Hemoglobin Concent 31.7 g/dL (32.0-36.0) Red Cell Distribution Width 17.0 % (11.8-14.3) Platelet Count 87 10^3/uL (140-450) Mean Platelet Volume 9.5 fL (6.9-10.8) Neutrophils (%) (Auto) 90.8 % (37.0-80.0) Lymphocytes (%) (Auto) 7.2 % (10.0-50.0) Monocytes (%) (Auto) 1.6 % (0.0-12.0) Eosinophils (%) (Auto) 0.3 % (0.0-7.0) Basophils (%) (Auto) 0.1 % (0.0-2.0) Neutrophils # (Auto) 5.5 10 ^3/uL (1.6-8.6) Lymphocytes # (Auto) 0.4 10 ^3/uL (0.4-5.4) Monocytes # (Auto) 0.1 10 ^3/uL (0-1.3) Eosinophils # (Auto) 0 10 ^3/uL (0-0.8) Basophils # (Auto) 0 10 ^3/uL (0-0.2) Nucleated Red Blood Cells 0.2 % Sodium Level 148 mmol/L (136-145) Potassium Level 2.4 mmol/L (3.5-5.1) Chloride Level 113 mmol/L (98-107) Carbon Dioxide Level 29 mmol/L (20-31) Anion Gap 6 (5-15) Blood Urea Nitrogen 30 mg/dL (9-23) Creatinine 2.56 mg/dL (0.700-1.30) Glomerular Filtration Rate Calc 24 mL/min (>90) BUN/Creatinine Ratio 11.7 (10.0-20.0) Serum Glucose 39 mg/dL (74-106) Calcium Level 6.9 mg/dL (8.7-10.4) Magnesium Level 2.0 mg/dL (1.6-2.6) Total Bilirubin < 0.2 mg/dL (0.2-1.0) Aspartate Amino Transferase (AST) 20 U/L (13-40) Alanine Aminotransferase (ALT) 25 U/L (7-40) Alkaline Phosphatase 90 U/L (46-116) Total Protein 4.8 g/dL (5.7-8.2) Albumin 2.4 g/dL (3.2-4.8) Blood Gas Specimen Type Arterial Blood Gas Sample Site Left brachial Blood Gas Patient Temperature 37.0 Arterial Blood Date Drawn [id number] Arterial Blood pH 7.365 (7.350-7.450) Arterial Blood Partial Pressure CO2 52.2 mmHg (35.0-48.0) Arterial Blood Partial Pressure O2 55.1 mmHg (83.0-108.0) Arterial Blood HCO3 29.2 mmol/L (21.0-28.0) Arterial Blood Oxygen Saturation 82.7 % (94.0-98.0) Arterial Blood Base Excess 3.0 mmol/L (-2.0-3.0) Arterial Blood Oxyhemoglobin 82.2 % (94.0-98.0) Arterial Blood Carboxyhemoglobin 0.5 % (0.5-1.5) Arterial Blood Methemoglobin 0.1 % (0.0-1.5) Cesario Test N/a Blood Gas Total Hemoglobin 11.20 g/dL (13.5-17.5) Blood Gas Liter Flow 6.00 Blood Gas Modality Nasal cannula FiO2 % 44.0 Blood Gas Critical Value Read Back Yes Blood Gas Notified Whom bigg Love md Blood Gas Notified Time [id number] Blood Gas Notified By Strip Roller araseli cohen Lactic Acid Level 3.0 mmol/L (0.4-2.0) Test 07/19/24 05:15 07/18/24 21:12 07/18/24 17:57 07/18/24 11:45 Differential Total Cells Counted 100.0 (100) Neutrophils % (Manual) 94 (37.0-80.0) Band Neutrophils % (Manual) 0 Lymphocytes % (Manual) 4 (10.0-50.0) Monocytes % (Manual) 2 (0-12) Eosinophils % (Manual) 0 (0-7) Basophils % (Manual) 0 (0.0-2.0) Metamyelocytes % (manual) 0 Myelocytes % (Manual) 0 Promyelocytes % (Manual) 0 Blast Cells % (Manual) 0 Reactive Lymphocytes 0 Platelet Estimate Decreased Prothrombin Time 16.5 sec (9.3-11.8) Prothrombin Time INR 1.63 (0.9-1.15) Activated Partial Thromboplast Time 43.9 SEC (24.5-34.5) Hemoglobin A1c 7.6 % A1C (<5.7) Triglycerides Level 45 mg/dL (< 150) Cholesterol Level < 50.0 mg/dL (< 200) LDL Cholesterol 6 mg/dL (< 100) HDL Cholesterol 13 mg/dL (40-59) Lipase 13 U/L (12-53) Urine Color Light-yellow (Yellow) Urine Clarity Clear (Clear) Urine pH 5.0 (5.0-9.0) Urine Specific [place] 1.008 (1.001-1.035) Urine Protein Negative (Negative) Urine Ketones Negative (Negative) Urine Blood 1+ /uL (Negative) Urine Nitrite Negative (Negative) Urine Bilirubin Negative (Negative) Urine Urobilinogen Normal mg/dL (Negative) Urine Leukocyte Esterase Negative /uL (Negative) Urine RBC <1 /hpf (0 - 3) Urine Microscopic WBC < 1 /HPF (0-3) Urine Squamous Epithelial Cells Few /hpf (<5) Urine Amorphous Crystals Few /hpf (None Seen) Urine Bacteria Few /hpf (None Seen) Urine Creatinine 22.39 mg/dL (30.0-125.0) Urine Protein/Creatinine Ratio 1.63 Urine Glucose 2+ mg/dL (Normal) Urine Total Protein 36.5 mg/dL (1-14) Anti-Nuclear Antibody Comment Comment (.) JENN-1 Antibody <0.2 AI (0.0-0.9) SS-A/Ro Antibody <0.2 AI (0.0-0.9) SS-B/La Antibody <0.2 AI (0.0-0.9) Sm Antibody <0.2 AI (0.0-0.9) PAT[employer]ER GRADER Antibody <0.2 AI (0.0-0.9) Scl-70 (Scleroderma) Antibody <0.2 AI (0.0-0.9) Anti-Double Strand DNA Antibody <1 IU/mL (0-9) Chromatin Antibody <0.2 AI (0.0-0.9) Centromere B Antibody <0.2 AI (0.0-0.9) Complement C3 107 mg/dL (82-167) Complement C4 24 mg/dL (12-38) Stool Occult Blood Negative (Negative) Stool Occult Blood Sample #3 (Negative) Test 07/17/24 21:00 07/17/24 19:33 Troponin I High Sensitivity 28 ng/L (</=54) C-Reactive Protein High Sensitivity > 20.00 mg/dL (<1.0) Thyroid Stimulating Hormone (TSH) 20.73 uIU/mL (0.55-4.78) Erythrocyte Sedimentation Rate 50 mm/hr (0-20) B-Type Natriuretic Peptide 449.41 pg/mL (0-100) Other Laboratory Tests 07/20/24 04:58 Brief Hx & Hospital Course: Final diagnoses: Acute hypoxic respiratory failure Bilateral multifocal pneumonia Type 2 diabetes Chronic kidney disease Mixed hyperlipidemia Hypothyroidism, uncontrolled Cholelithiasis Diverticulosis Pulmonary edema, rule out heart failure Acute kidney injury, hemodynamically mediated Diarrhea x2 months Hypokalemia Hypernatremia Hypomagnesemia Sepsis Atrial fibrillation 88-year-old male was admitted for acute kidney injury and dehydration and sepsis with septic shock due to prolonged diarrhea that yet for 2 month, he also had pneumonia with acute hypoxic respiratory failure and sepsis requiring vasopressors He was given IV antibiotics and oxygen He was given IV fluids due to acute kidney injury, he was given potassium replacement and magnesium replacement Overnight he became more septic and required more vasopressors The family came and they said he has been sick too long for about 3 or 4 years since he contacted [employer] and he never recovered since then with the multiple episodes of acute sickness and generalized weakness and then recently diarrhea for 2 months continuously with poor oral intake Here he still has diarrhea, C diff was negative in his stools Stool cultures were all negative Blood culture was negative Urine culture no growth We had a lengthy discussion with the and daughter yesterday about his prognosis and they asked for him to be comfort care and to get him home on hospice, because he was on Levophed drip we explained to them that we will try to take him off the Levophed 1st, they agreed Now he is still on Levophed, we discussed his poor prognosis again with the daughter and at the bedside, they still want the patient to come home on hospice if possible today The plan now will be to take him off the Levophed and see if his blood pressure is stable enough for him to be transported home on hospice Consult social services specialist for hospice arrangements Comfort care DNR Condition at Discharge: Poor Final Diagnosis/Problems List Acute hypoxic respiratory failure Bilateral multifocal pneumonia Type 2 diabetes Chronic kidney disease Mixed hyperlipidemia Hypothyroidism, uncontrolled Cholelithiasis Diverticulosis Pulmonary edema, rule out heart failure Acute kidney injury, hemodynamically mediated Diarrhea x2 months Hypokalemia Hypernatremia Hypomagnesemia Sepsis Atrial fibrillation Discharge Disposition: Hospice - Home SNF Discharge Will this Physician continue t: No Discharge Statement: "Patient was advised to return to the ER or call 911 if any headaches, dizziness, shortness of breath, chest pain, abdominal pain, bleeding, fevers, or worsening of medical condition. Patient was counseled about treatment plan, medications, possible side effects, patientverbalized understanding. All questions were answered to the best of my ability. This discharge took greater then 30 minutes in planning, reviewing documentation, counseling the patient, and discussing with other team members." ASSESSMENT ASSESSMENT Assessment Date of Service: Jul 20, 2024 Billing Provider: KARRIE LOVE MD Common Visit Codes: NOT BILLABLE KARRIE LOVE MD Jul 20, 2024 10:38
[2024-07-20] MEDS ORDERED: MORPHINE SULFATE INJ 2 MG/ml SYRG IV PRN (10:45)
[2024-07-20 11:40] LABS: Hepatitis B Surface Antigen Negative (Negative); Hepatitis C Antibody Negative (Negative)
[2024-07-20 23:07] LABS: Thyroglobulin Antibody 31.8 IU/mL (0.0-0.9)
--- NOTE | 2024-07-21 06:57 | DVHPN2 ---
Progress Note - Dictate Date Seen: Jul 20, 2024 Medical Necessity Reason Pt with a Central, PICC or Fol: Yes The following are medically ne: Turk Catheter Reason for turk catheter: Strict I&O Subjective Patient seen and examined at bedside. Remains on supplemental oxygen Overnight events reviewed. vital signs Vital Sign Date Time Temp Pulse Resp B/P (MAP) Pulse Ox O2 Delivery O2 Flow Rate FiO2 07/20/24 15:24 98.8 58 14 50 209.8 07/20/24 14:00 Oxymizer 8 N/A Total Intake and Output 07/20/24 07/20/24 07/21/24 15:00 23:00 07:00 Intake Total 1247.50 ml Balance 1247.50 ml medications Current Medications Medications Dose Ordered Sig/Cassidy Route Start Time Stop Time Status Last Admin Dose Admin Enoxaparin Sodium 70 mg DAILY SC 07/20/24 10:00 Cancel objective Gen.: Patient lying in bed in no apparent distress. On supplemental oxygen. Head: Normocephalic, atraumatic. Eyes: EOMI/PERRLA. Ears: Normal hearing. Normal anatomy. Neck/trachea: Trachea midline, supple. Nose: Normal external anatomy. Mouth: Moist mucous membranes. Chest: Decreased air entry bilaterally. No wheezing or rhonchi. Cardiovascular: Positive S1, positive S2. Regular rate and rhythm. Abdomen: Positive bowel sounds in all 4 quadrants. Soft, non-tender, non- distended. : Deferred. Rectal: Deferred. Skin: Warm, dry. Intact. Extremities: 2+ radial pulses bilaterally. No lower extremity edema. Neuro: Nonresponsive. No gross motor or sensory deficits. Cranial nerves II through XII intact. Gait not assessed. laboratory and microbiology Laboratory Tests 07/20/24 04:58 Test 07/20/24 04:58 Range/Units Serum Glucose 39 #*L 74-106 mg/dL Assessment/Plan Impression: Acute on chronic hypoxic respiratory failure Chronic hypercarbic respiratory failure Dependence on supplemental oxygen Multifocal pneumonia Acute on chronic CHF Colitis Acute kidney injury DM type II Shock, septic Events: Remains on supplemental oxygen, 10 LPM Oxymizer Remains on Levophed for hemodynamic support Titrate to keep mean arterial pressure greater than 65 mmHg. Critical labs noted today- K of 2.4. Blood glucose of 39 mg/dL --> 96 mg/dl Patient nonresponsive, hypothermic On Min Hugger AFib/A flutter noted. Poor prognosis Plan to discontinue Levophed and transfer home on hospice per family's request. Addendum: Note, patient while awaiting transportation. Labs and imaging reviewed. Plan: Supplemental oxygen Titrate to keep O2 sats above 92%. Chemical code. On pressors for hemodynamic support Titrate to keep mean arterial pressure greater than 65 mmHg. Cardiology recommendations appreciated Echo report reviewed. Continue bronchodilators. Continue antibiotics Follow up cultures Accu-Cheks, ISS Monitor renal function. Monitor electrolytes. Supplement as necessary. Monitor ins and outs. GI prophylaxis - Protonix DVT prophylaxis. Prognosis: Poor given patient's multiple co-morbidities. Condition: Critical Rest of plan per hospitalist and other consultants. A total of 35 minutes of critical care time was spent reviewing the patient record, examining the patient, making a diagnostic and therapeutic plan, discussing this plan with the medical personnel, following up on diagnostic studies and following the patient for clinical stability excluding any and all procedures. At least 50% of this time was spent in direct, [id number] contact. Thank you, Dr. Love, for allowing me to participate in this patient's care. Further recommendations will depend on the patient's clinical course. Please do not hesitate to contact me if you have any questions or concerns. This medical document was created using an electronic medical record system with [employer] dictation system. Although these documentations are being carefully reviewed, there may still be some phonetic and typographical changes. The errors are purely typographical, due to imperfection on the software program, and do not reflect any compromise in the patient's medical care. Plan discussed with: Other (RN, NOK) Critical Care Time(min): 35 SELIN GOODSON MD Jul 21, 2024 06:57
[2024-07-21 12:07] LABS: Mitochondrial (M2) Antibody <20.0 Units (0.0-20.0)
[2024-07-21 13:07] LABS: Cytoplasmic (C-ANCA) <1:20 titer (Neg:<1:20); Perinuclear (P-ANCA) <1:20 titer (Neg:<1:20)
[2024-07-22 23:07] LABS: Dilute Prothrombin Time(dPT) 45.6 sec (0.0-47.6); Hexagonal Phase Phospholipid 3 sec (0-11); PTT-LA 53.2 sec (0.0-43.5); PTT-LA Mix 53.3 sec (0.0-40.5); Thrombin Time 19.8 sec (0.0-23.0); dPT Confirm Ratio 0.82 Ratio (0.00-1.34); dRVVT 49.9 sec (0.0-47.0); dRVVT Confirm 0.9 ratio (0.8-1.2); dRVVT Mix 41.6 sec (0.0-40.4)
[2024-07-23 00:06] LABS: Lupus Interpretation Comment: (.)
[2024-07-23 08:07] LABS: Antimyeloperoxidase (MPO) Ab <0.2 units (0.0-0.9); Antiproteinase 3 (PR-3) Ab <0.2 units (0.0-0.9)
[2024-07-23 11:07] LABS: Antiparietal Cell Antibody 9.5 Units (0.0-20.0)
== END 2024-07-20 15:27 | DRG 871 ==
LOC: EDBD 18:55 → ER 19:01 → OVERFLOW 23:37 → CENTRAL 07-18 22:00 → TELE-CENTR 07-18 23:52 → ICU CENTRL 07-19 13:55
PROVIDERS: ADMIT Internal Medicine Geriatric Medicine; ATTEND Internal Medicine Geriatric Medicine
DX: A41.9 Sepsis, unspecified organism (principal); I50.33 Acute on chronic diastolic (congestive) heart failure; J15.69 Pneumonia due to other Gram-negative bacteria; J15.9 Unspecified bacterial pneumonia; J96.22 Acute and chronic respiratory failure with hypercapnia; J96.21 Acute and chronic respiratory failure with hypoxia; R65.21 Severe sepsis with septic shock; I13.0 Hypertensive heart and chronic kidney disease with heart failure and stage 1 through stage 4 chronic kidney disease, or unspecified chronic kidney disease; E46 Unspecified protein-calorie malnutrition; E87.0 Hyperosmolality and hypernatremia; N17.9 Acute kidney failure, unspecified; N18.4 Chronic kidney disease, stage 4 (severe); E87.20 Acidosis, unspecified; A09 Infectious gastroenteritis and colitis, unspecified; I50.9 Heart failure, unspecified; Z66 Do not resuscitate; K57.30 Diverticulosis of large intestine without perforation or abscess without bleeding; K80.20 Calculus of gallbladder without cholecystitis without obstruction; I48.91 Unspecified atrial fibrillation; E87.6 Hypokalemia; E83.42 Hypomagnesemia; E78.2 Mixed hyperlipidemia; E11.22 Type 2 diabetes mellitus with diabetic chronic kidney disease; E11.649 Type 2 diabetes mellitus with hypoglycemia without coma; I35.1 Nonrheumatic aortic (valve) insufficiency; E03.9 Hypothyroidism, unspecified; I25.10 Atherosclerotic heart disease of native coronary artery without angina pectoris; H10.89 Other conjunctivitis; E86.0 Dehydration; Z79.899 Other long term (current) drug therapy; Z79.4 Long term (current) use of insulin; Z99.81 Dependence on supplemental oxygen; Z68.22 Body mass index [BMI] 22.0-22.9, adult
CPT/HCPCS: 36415; 36600; 71045; 74176; 76775; 80048; 80053; 80061; 81001; 82270; 82570; 82805; 82962; 83036; 83516; 83520; 83605; 83690; 83735; 83880; 84132; 84156; 84443; 84484; 85007; 85025; 85027; 85610; 85613; 85652; 85670; 85705; 85730; 85732; 86141; 86160; 86225; 86235; 86256; 86800; 86803; 87040; 87045; 87081; 87086; 87340; 87427; 87493; 93005; 93306; 96365; G0378; J1815; J1956; J2470; J3490